=== PATIENT | male | born 1955 | race Caucasian/White ===

== ENCOUNTER 2020-09-04 17:52 | Emergency (ER) | payer MEDICARE, SELFPAY ==
--- NOTE | ~2020-09-04 | XR_ITS ---
EXAMINATION: XR CHEST CLINICAL INFORMATION: Weakness. COMPARISON: CT of the chest dated 03/30/2020. TECHNIQUE: Frontal view of the chest was obtained. FINDINGS: Mild elevation of the left hemidiaphragm secondary to volume loss. Left hilar and left lower lung/retrocardiac opacification No pulmonary edema. No pneumothorax or pleural effusion. Cardiomediastinal silhouette obscured by lung opacification. No acute osseous abnormality. XR/XR chest 1V IMPRESSION: Left lung volume loss. Left hilar and left lower lung opacification which may reflect sequelae of pneumonia. Underlying neoplasm not excluded.
--- NOTE | ~2020-09-04 | FL_ITS ---
EXAMINATION: XR BARIUM SWALLOW CLINICAL INFORMATION: Dysphagia COMPARISON: None TECHNIQUE: Fluoroscopic guidance was provided for modified barium swallow performed by the speech and hearing department The patient was administered liquid barium and various food mixed with barium. FINDINGS: There is tracheal penetration is seen with liquid barium on 2 occasions. The second occurrence was at the completion of the exam and there is question of minimal aspiration as well. There is significant retention of liquid barium and food mixed with barium. FLUOROSCOPY TIME: 2.7 minutes DOSE AREA PRODUCT: 3 pavon per centimeter squared. 1 saved fluoroscopic image. FL/FL barium swallow modified IMPRESSION: Fluoroscopy guidance for modified barium swallow
[2020-09-04 17:58] VITALS: BP 123/80; PULSE 96; RESP 18; TEMP 36.9; O2SAT 96
--- NOTE | 2020-09-04 18:01 | ED.PSYCH ---
HPI - Psych General Chief Complaint: Failure to Thrive Stated Complaint: FAILURE TO THRIVE Time Seen by Provider: 09/04/20 17:58 Source: patient Mode of arrival: ambulatory Limitations: no limitations History of Present Illness HPI Narrative: 64 yo male [facility] a [facility] with past medical history of asthma, ESTER, schizoaffective disorder-bipolar type, Lung CA with mets to liver followed by Dr Abad. [facility] on section 12 which says patient is refusing all medications with cycling mods, not eating or getting out of his bed. Reviewed last oncology note on 08/21 which notes at that time patient was refusing all chemotherapy treatment, not eating, depressed. Recommended psychiatry get involved to make sure he was getting his medications. Also recommended barium swallow. Patient on arrival tells me he has a decreased appetite and sometimes feels like food gets stuck when eating. Unable to elaborate on this. Denies pain or painful swallowing. Related Data Home Medications Medication Instructions Recorded Confirmed ascorbic acid (vitamin C) 1 tab PO BID 07/17/20 09/04/20 divalproex 1 tab PO BID 07/17/20 09/04/20 ferrous sulfate 1 tab PO BID 07/17/20 09/04/20 folic acid 1 tab PO DAILY 07/17/20 09/04/20 furosemide 1 tab PO DAILY 07/17/20 09/04/20 gabapentin 100 mg PO BID 07/17/20 09/04/20 docusate sodium 1 cap PO BID 09/04/20 09/04/20 fluticasone furoate-vilanterol 1 inh INHALATION DAILY 09/04/20 09/04/20 [Breo Ellipta] megestrol 20 ml PO DAILY 09/04/20 09/04/20 olanzapine [Zyprexa] 1 tab PO BEDTIME 09/04/20 09/04/20 Allergies Allergy/AdvReac Type Severity Reaction Status Date / Time No Known Allergies Allergy Unverified 03/27/20 18:57 [No Known Allergies*] Review of Systems Review of Systems: Yes all other systems are reviewed and are negative Constitutional: Constitutional: Reports no additional constitutional complaints, Reports anorexia, Denies body ache(s), Denies chills, Denies fever(s), Denies headache(s) and Denies weakness Eyes: Eyes: Reports no additional eye complaints and Denies change in vision ENT: Reports system reviewed and no additional complaints, except as documented, Reports dysphagia, Denies dizziness, Denies headache(s), Denies nasal congestion, Denies nasal discharge and Denies neck pain Cardiovascular: Cardiovascular: Reports no additional cardiovascular complaints, Denies chest pain, Denies leg edema and Denies dyspnea Respiratory: Respiratory: Reports no additional respiratory complaints, Denies cough and Denies dyspnea Gastrointestinal: Gastrointestinal: Reports no additional gastrointestinal complaints, Denies abdominal pain, Reports dysphagia, Denies diarrhea, Denies nausea and Denies vomiting Genitourinary: Genitourinary: Denies urinary incontinence Musculoskeletal: Musculoskeletal: Reports no additional musculoskeletal complaints, Denies back pain, Denies arthralgias, Denies joint swelling, Denies neck pain, Denies numbness and Denies tingling Integumentary/Breasts: Skin/Breast: Reports system reviewed and no additional complaints, except as docu and Denies rash Neurologic: Reports system reviewed and no additional complaints, except as documented, Denies Abnormal speech present, Denies dizziness, Denies headache(s), Denies numbness, Denies tingling and Denies weakness PMF Past Medical History Attestation statement: The following information was validated with the patient. Source: old records reviewed and nursing notes reviewed Medical History Schizophrenia Squamous cell carcinoma of lung Social History Social History Household Members: Other Smoking Status: Current every day smoker Tobacco Type: Cigarette Smoked in Last 30 Days: No Use of substances other than those prescribed or required for medical reasons: No Advance Directives: Yes Advance Directives on File: Yes Advance Directives Date on File: 09/04/20 Physical Exam Vital Signs: Vital Signs: Last Vital Signs Temp 98.5 F 09/04/20 20:00 Pulse 88 09/04/20 20:00 Resp 14 09/04/20 20:00 BP 120/76 09/04/20 20:00 Pulse Ox 100 09/04/20 20:00 Body Mass Index 20.2 Const: Other: thin appearing Orientation/consciousness: patient oriented x3 Limitations: no limitations HENMT: Other: tacky mucous membranes Head: Yes normal to inspection Ears: hearing grossly normal bilaterally General nose exam: Normal external nose present Face and sinus: Yes normal facial exam Mouth: Normal oral and palatal mucosa present Throat: Yes posterior oropharynx normal Eyes: General: appearance normal, both eyes and all related structures Pupils: Equal, round and reactive pupils present Neck: Neck: Yes normal visual inspection Chest: Chest palpation & inspection: normal inspection of the chest Resp: Effort & Inspection: normal respiratory effort Auscultation: clear to auscultation bilaterally Cardio: Rate: regular rate Rhythm: regular rhythm Peripheral pulses: Peripheral pulses 2+ throughout GI: Inspection: Yes normal to inspection Palpation (GI): Soft to palpation and nontender Auscultation: normal bowel sounds Back/Spine/Pelvis: Thoracic/Lumbar Spine: thoracic and lumbar spine normal to inspection Skin: General skin exam: no rashes or lesions noted Neuro: General: patient oriented x3, no focal motor deficits and normal sensation to monofilament Cranial nerves: Yes Equal, round and reactive pupils present Cognition (Neuro): normal cognition Speech: No Abnormal speech present Gait exam (Neuro): Normal gait present Motor exam (neuro): 5/5 motor strength present throughout Extrem: General: Yes normal to inspection Course Course Course Narrative: 64 yo male here on section 12 with concern for not taking his medications, refusing all food and staying in bed for last 4 days. Reviewed last oncology notes from 08/21 and noted that patient at that time was refusing chemotherapy, refusing po intake and medications. Recommended discussion with psych and obtaining barium swallow test. Patient is only able to provide a very limited history. He tells me he has no appetite and sometimes food gets stuck. He tells me he does not want to take his medications or have chemotherapy but when I asked the patient is he was wishing to he denies this. ?lack of insight and judgment. I'm not sure he understands what this means for him. Sister is listed as HCP. Called twice with no answer, left message. Will check labs, CXR, EKG, UA, COVID screen. 190-labs are unremarkable. Chest x-ray shows Left lung volume loss. Left hilar and left lower lung opacification which may reflect sequelae of pneumonia. Underlying neoplasm not excluded. When compared to oncology note this is his underlying malignancy. COVID negative. ?plan of care with patient who is resistant (not taking medications, refusing PO per staff) however labs do not reflect a patient who has taken nothing by mouth. Very difficult and ?underlying psychiatric diagnosis with non compliance of medications contributing to behavior vs mechanical abnormality. Another attempt to reach HCP but unsuccessful. Will discuss with oncology. 1929-Discussed with Dr Gonzalez from oncology. Recommended admit to observation, obtaining barium swallow study, involving psychiatry for medication managament but also to evaluate competency. Likely will need advanced care planning when able to reach HCP. Discussed with hospitalist (Dr Jennings) who does not feel that patient meets admission criteria at this time. [id number]-discussed with Asya from Care Team, Mandi from case management. [facility] has beeen involved and doing daily visits at penitentiary and have not felt at this point patient requires inpatient psych care. Patient was sent on a section 12 from [facility]. Lengthy discussion with family on the phone. They expressed concern that they know very little about the patient's prognosis as he likes to keep things to himself. The sister who is his healthcare proxy shares this concern. She very much wants to respect her brother's autonomy but also wants what is best for him and she is very concerned of his recent decline. Will place consult as well for oncology Dr. Abad that she may spend time talking to the family as well as the patient about his prognosis and future plan of care. Case management also requested physical therapy consult. MDM - Psych Medical Records Attestation: I reviewed the patient's medical records. Lab Data Attestation: I reviewed the patient's lab results. Result diagrams: 09/04/20 18:22 09/04/20 18:23 Labs: Lab Results 09/04/20 09/04/20 09/04/20 Range/Units 18:22 18:23 18:23 WBC 10.5 (4.8-10.8) X10*3/uL RBC 4.52 L (4.60-5.80) X10*6/uL Hgb 13.1 L (14.0-18.0) g/dl Hct 39.9 L (42-52) % MCV 88.3 (80-98) fL MCH 29.0 (27.0-33.0) pg MCHC 32.8 (31.0-36.0) g/dl RDW 15.3 (11.0-16.0) % Plt Count 224 D (160-400) X10*3/uL MPV 9.5 (9.4-12.4) fL Immature Gran % (Auto) 1.1 H (0.0-0.4) % Neut % (Auto) 87.9 H (45-73) % Lymph % (Auto) 4.3 L (20-40) % Collingsworth % (Auto) 6.6 (2-11) % Eos % (Auto) 0.0 (0-4) % Baso % (Auto) 0.1 (0-2) % Lymph # (Auto) 0.5 L (1.2-4.9) X10*3/uL Collingsworth # (Auto) 0.7 (0.1-1.2) X10*3/uL Eos # (Auto) 0.0 (0.0-0.4) X10*3/uL Baso # (Auto) 0.0 (0.0-0.2) X10*3/uL Abs Immat Gran (auto) 0.12 H (0.00-0.03) X10*3/uL Absolute Neuts (auto) 9.2 H (2.0-8.3) X10*3/uL Absolute Nucleated RBC 0.000 (0.0-0.012) X10*3/uL Nucleated RBC % (auto) 0.0 (0.0-0.2) /100WBC Smear Tech's Comments VERIFIED PT (10.8-13.0) SEC INR (0.9-1.1) Sodium 143 (135-145) mmol/L Potassium 3.8 (3.3-5.1) mmol/L Chloride 99 (96-108) mmol/L Carbon Dioxide 34 H (22-29) mmol/L Anion Gap 14 (12-20) BUN 23 H (9-16) mg/dL Creatinine 0.73 (0.5-1.4) mg/dL Estim Creat Clear Calc 84.5 Estimated GFR > 60 Random Glucose 92 (60-115) mg/dL Calcium 9.3 (8.4-10.2) mg/dL Magnesium 1.9 (1.6-2.6) mg/dL Total Bilirubin 0.7 (0.0-1.0) mg/dL Direct Bilirubin 0.4 (0.0-0.5) mg/dL AST 52 H (5-37) U/L ALT 22 (0-40) U/L Alkaline Phosphatase 213 H (39-117) U/L Troponin I High Sens (<3.5-35.0) ng/L Total Protein 5.7 L (6.5-8.0) g/dL Albumin 3.0 L (3.5-5.0) g/dL Urine Color Urine Appearance Urine pH (5.0-8.0) Ur Specific Bradford (1.005-1.025) Urine Protein (NEG-TRACE) MG/DL Urine Glucose (UA) (NEG) MG/DL Urine Ketones (NEG) MG/DL Urine Blood (NEG) Urine Nitrite (NEG) Ur Leukocyte Esterase (NEG) COVID-19 (MARISOL) Negative (Negative) COVID-19 Clin Com See Note 09/04/20 09/04/20 09/04/20 Range/Units 18:23 18:24 18:31 WBC (4.8-10.8) X10*3/uL RBC (4.60-5.80) X10*6/uL Hgb (14.0-18.0) g/dl Hct (42-52) % MCV (80-98) fL MCH (27.0-33.0) pg MCHC (31.0-36.0) g/dl RDW (11.0-16.0) % Plt Count (160-400) X10*3/uL MPV (9.4-12.4) fL Immature Gran % (Auto) (0.0-0.4) % Neut % (Auto) (45-73) % Lymph % (Auto) (20-40) % Collingsworth % (Auto) (2-11) % Eos % (Auto) (0-4) % Baso % (Auto) (0-2) % Lymph # (Auto) (1.2-4.9) X10*3/uL Collingsworth # (Auto) (0.1-1.2) X10*3/uL Eos # (Auto) (0.0-0.4) X10*3/uL Baso # (Auto) (0.0-0.2) X10*3/uL Abs Immat Gran (auto) (0.00-0.03) X10*3/uL Absolute Neuts (auto) (2.0-8.3) X10*3/uL Absolute Nucleated RBC (0.0-0.012) X10*3/uL Nucleated RBC % (auto) (0.0-0.2) /100WBC Smear Tech's Comments PT 12.5 (10.8-13.0) SEC INR 1.1 (0.9-1.1) Sodium (135-145) mmol/L Potassium (3.3-5.1) mmol/L Chloride (96-108) mmol/L Carbon Dioxide (22-29) mmol/L Anion Gap (12-20) BUN (9-16) mg/dL Creatinine (0.5-1.4) mg/dL Estim Creat Clear Calc Estimated GFR Random Glucose (60-115) mg/dL Calcium (8.4-10.2) mg/dL Magnesium (1.6-2.6) mg/dL Total Bilirubin (0.0-1.0) mg/dL Direct Bilirubin (0.0-0.5) mg/dL AST (5-37) U/L ALT (0-40) U/L Alkaline Phosphatase (39-117) U/L Troponin I High Sens 5.6 (<3.5-35.0) ng/L Total Protein (6.5-8.0) g/dL Albumin (3.5-5.0) g/dL Urine Color YELLOW Urine Appearance CLEAR Urine pH 5.5 (5.0-8.0) Ur Specific Bradford 1.020 (1.005-1.025) Urine Protein NEG (NEG-TRACE) MG/DL Urine Glucose (UA) NEG (NEG) MG/DL Urine Ketones NEG (NEG) MG/DL Urine Blood NEG (NEG) Urine Nitrite NEG (NEG) Ur Leukocyte Esterase NEG (NEG) COVID-19 (MARISOL) (Negative) COVID-19 Clin Com Imaging Data Chest x-ray: Attestation: I personally reviewed and interpreted this imaging study as follows: Radiologist's impression: EXAMINATION: XR CHEST CLINICAL INFORMATION: Weakness. COMPARISON: CT of the chest dated 03/30/2020. TECHNIQUE: Frontal view of the chest was obtained. FINDINGS: Mild elevation of the left hemidiaphragm secondary to volume loss. Left hilar and left lower lung/retrocardiac opacification No pulmonary edema. No pneumothorax or pleural effusion. Cardiomediastinal silhouette obscured by lung opacification. No acute osseous abnormality. XR/XR chest 1V IMPRESSION: Left lung volume loss. Left hilar and left lower lung opacification which may reflect sequelae of pneumonia. Underlying neoplasm not excluded. ECG Data Attestation: I personally reviewed and interpreted this ECG as follows: Interpretation: SR with PAC's with rte 97, normal pr, normal qrs, normal qtc Discharge Plan Discharge Prescriptions: No Action ascorbic acid (vitamin C) 500 mg tablet 1 tab PO BID RF: 0 ferrous sulfate 325 mg (65 mg iron) tablet 1 tab PO BID RF: 0 divalproex 125 mg tablet,delayed release (DR/EC) 1 tab PO BID RF: 0 folic acid 1 mg tablet 1 tab PO DAILY RF: 0 furosemide 20 mg tablet 1 tab PO DAILY RF: 0 gabapentin 100 mg capsule 100 mg PO BID RF: 0 megestrol 400 mg/10 mL (40 mg/mL) suspension 20 ml PO DAILY RF: 0 docusate sodium 100 mg capsule 1 cap PO BID RF: 0 olanzapine [Zyprexa] 20 mg tablet 1 tab PO BEDTIME RF: 0 Breo Ellipta 200-25 mcg/dose blister with device 1 inh inhalation DAILY RF: 0
[2020-09-04 18:02] VITALS: BP 123/80; PULSE 96; RESP 16; TEMP 36.9; BMI 20.2
--- NOTE | 2020-09-04 18:10 | ECG_ITS ---
Test Reason : WEAKNESS Blood Pressure : / mmHG Vent. Rate : 097 BPM Atrial Rate : 097 BPM P-R Int : 136 ms QRS Dur : 088 ms QT Int : 364 ms P-R-T Axes : 084 099 039 degrees QTc Int : 462 ms Sinus rhythm with Premature atrial complexes Rightward axis Borderline ECG When compared with ECG of 30-MAR-2020 15:45, Premature atrial complexes are now Present Nonspecific T wave abnormality now evident in Anterior leads Referred By: Keri lFetcher Electronically Signed By:PALLAVI ALMONTE MD
[2020-09-04 18:29] VITALS: O2SAT 99
[2020-09-04 18:30] LABS: Basophils Percent Auto 0.1 % (0-2); Hematocrit 39.9 % (42-52); Hemoglobin 13.1 g/dl (14.0-18.0); Imm Gran Abs Auto 0.12 X10*3/uL (0.00-0.03); Imm Gran Pct Auto 1.1 % (0.0-0.4); Lymphocytes Absolute Auto 0.5 X10*3/uL (1.2-4.9); Lymphocytes Percent Auto 4.3 % (20-40); MANUAL DIFF FLAG SCAN; Mean Corpuscular HGB Conc 32.8 g/dl (31.0-36.0); Mean Corpuscular Volume 88.3 fL (80-98); Mean Platelet Volume 9.5 fL (9.4-12.4); Monocytes Absolute Auto 0.7 X10*3/uL (0.1-1.2); Monocytes Percent Auto 6.6 % (2-11); Neutrophils Absolute Auto 9.2 X10*3/uL (2.0-8.3); Neutrophils Percent Auto 87.9 % (45-73); Platelet Count 224 X10*3/uL (160-400); Red Blood Count 4.52 X10*6/uL (4.60-5.80); Red Cell Distribution Width 15.3 % (11.0-16.0); SCAN SMEAR FLAG 1; White Blood Count 10.5 X10*3/uL (4.8-10.8)
[2020-09-04 18:37] LABS: INTERNATIONAL NORM RATIO 1.1 (0.9-1.1); Prothrombin Time 12.5 SEC (10.8-13.0)
[2020-09-04 18:39] LABS: Glucose Urine UA NEG (NEG); Leukocyte Esterase Urine NEG (NEG); Nitrite Urine NEG (NEG); PH 5.5 (5.0-8.0); Urine Blood NEG (NEG); Urine Ketones NEG (NEG); Urine Protein NEG (NEG-TRACE)
[2020-09-04 18:40] LABS: Appearance Urine CLEAR; Color Urine YELLOW
[2020-09-04 18:45] LABS: COVID-19 Test Negative (Negative)
[2020-09-04 18:51] LABS: SLIDE REVIEW VERIFIED
[2020-09-04 18:52] LABS: Alanine Aminotransferase 22 U/L (0-40); Alkaline Phosphatase 213 U/L (39-117); Anion Gap 14 (12-20); Aspartate Amino Transferase 52 U/L (5-37); Bilirubin Direct 0.4 mg/dL (0.0-0.5); Bilirubin Total 0.7 mg/dL (0.0-1.0); Blood Urea Nitrogen 23 mg/dL (9-16); Calcium 9.3 mg/dL (8.4-10.2); Carbon Dioxide 34 mmol/L (22-29); Chloride 99 mmol/L (96-108); Creatinine Clr Calc Pharmacy 84.5; Estimated Glomerular Filt Rate > 60; Glucose Random 92 mg/dL (60-115); Magnesium 1.9 mg/dL (1.6-2.6); Potassium 3.8 mmol/L (3.3-5.1); Sodium 143 mmol/L (135-145); Total Protein 5.7 g/dL (6.5-8.0)
[2020-09-04 18:56] LABS: Troponin-I High Sensitivity 5.6 ng/L (<3.5-35.0)
[2020-09-04 20:00] VITALS: BP 120/76; PULSE 88; RESP 14; TEMP 36.9; O2SAT 100
--- NOTE | 2020-09-04 21:51 | MHC.CARE ---
CARE Team is asked to speak with patient, who is sent here on a section 12 by his [facility] care home staff. CARE Team reaches out to [facility] crisis, and they report that they have evaluated pt multiple times this week at the care home, with recommendation for outpatient treatment. [facility] does not feel that pt is suicidal or decompensated. Pt has reportedly been refusing cancer treatment and minimally eating and drinking. [facility] is concerned about pt's judgment and ability to make reasoned decisions about his care. CARE Team meets with pt, who gives answers in one or two words only. He adamantly denies suicidal ideation. His affect is flat, and eyes are closed through most of the intervention. When asked why he is refusing treatment and refusing to eat and drink at times, he states I just don't want to, and i'll be fine. He denies feeling depressed and states that he does not want any additional mental health treatment at this time. No symptoms of psychosis are observed. CARE Team and DRAGAN Raymond from case management speak with patient's sister, Elsa. Elsa identifies that when her brother does not take psychiatric medications he presents w/ psychotic sx, yelling, talking to himself and paranoia. She identifies that pt typically would be off medication for 2-3 weeks before these symptoms would be observed. Elsa reports that she is unclear about how adavanced pt's cancer is, but she and their mother plan on supporting pt if he no longer wants to participate in chemotherapy. Elsa identifies that pt seems significantly more weak than usual over the past two weeks, eating and drinking less and using a walker. She wonders if he may need to more medical care then his care home is providing at this time. Elsa states that she is willing to speak to pt on the phone and encourage him to take his medications if needed. CARE Team speaks with Lyndsay, staff from pt's care home at [facility]. fractionation plant supervisor, Daniel Hurt can be reached at [phone] and will be available tomorrow during the day. Lyndsay reports that pt takes medications twice daily and has refused 4 times over the past seven days. She reports that pt has been intermittently medication noncompliant over the past month or so, and within the past month went an entire week without medications. Lyndsay identifies that care home services are centered around mental health and there is very limited nursing care available there. Benji identifies that pt has not presented with psychotic or manic sx recently, and appears depressed more than usual. CARE Team, case management (DRAGAN Raymond) and AMBROSE Saavedra discuss plans for this patient. Plan for tomorrow includes additional medical work up, psychiatric consultation to determine capacity, and additional intervention from case management. Per N and CARE Team, pt does not currently meet criteria for inpt level of care. CARE Team is available as needed for support, however, additional intervention not planned from CARE Team at this time.
--- NOTE | 2020-09-04 22:53 | MHC.CM.ED ---
CM referred by Keri TaverasConcerned about pt needing more medical care that care home can offer.Pt not meeting criteria for admission/obs. Asya from CARE team met with pt. Asya [facility] Care Team spoke to CM about concerns and met with pt. Pt was section 12 to ED from his mental health care home for intermittently taking his meds and not eating. [facility] evaluated pt at care home several times this week, per [facility], pt does not meet level of care for inpt. psych. Per N, pt drank 4 ensures today. There is a question if pt has been refusing further CA treatment from care home. Pt has recurrent squamous cell lung carcinoma with mets to liver. Has had chemo and radiation in the past. Per Dr. Vegas's record of 08/23/20, pt refused last chemo treatment. Not feeling well. C/O difficulty swallowing. Seeming much weaker. Spoke with sister/HCO Elsa Coltonkosta ([phone]) with Asya from CARE team. Per sister, pt appears weaker to her, is using a walker and seem to be going downhill. Is unsure about updates regarding lung cancer, as her brother does not share this with her. Sister stated both she and her mother will support her brother's decision if he chooses not to continue to cancer treatments. Sister feels pt needs more medical care. Dr. Vegas's note, pt needs barium swallow to assess for swallowing issues. Plan for am: Barium swallow, PT consult, Consult to Rubina Quiles ? capacity, Consult Oncology -update on lung cancer prognosis and assistance with pt to make decision about treatment. Concerns: Capacity, swallowing concerns, [facility] care home is for mental health not medical care, need for STR, needing more medical care, refusing some medications at care home (4doses last week out of 14) Contacts: Elsa BAUER/sister [phone] [facility] care [facility]: [phone] preparation department supervisor Daniel Hurt No referrals placed at this time pending further evaluation. CM to follow for d/c needs.
[2020-09-05] VITALS (8 sets, daily range): BP systolic 100–126; BP diastolic 58–70; PULSE 65–76; RESP 16–18; O2SAT 92–98
[2020-09-05] MEDS: Gabapentin 100 MG CAPSULE PO ×3 (00:19→20:44)
[2020-09-05] MEDS: OLANZapine 10 MG TABLET 20 MG PO ×2 (00:19→20:45)
[2020-09-05] MEDS: Ascorbic Acid 500 MG TABLET PO ×3 (00:19→20:44)
[2020-09-05] MEDS: Docusate Sodium 100 MG CAPSULE PO ×3 (00:19→20:44)
--- NOTE | 2020-09-05 05:09 | PC.NURSE ---
PT TOOK PO MEDS W/O DIFFICULTY, REQUESTING FLUIDS. WOULD NOT EAT. WAS CALM & COOPERATIVE W/THIS RN W/NO COMPLAINTS. PT IS PENDING, ONCOLOGY CONSULT, PT/CM, AND BARIUM SWALLOW TODAY
--- NOTE | 2020-09-05 07:12 | PC.NURSE ---
Nurse to Nurse report received from Al RN. Pt alert, responsive. Offers no complaints at this time. Respirations even/unlabored bilaterally. Pt awaiting oncology consult, PT, Case management, and a Barrium swallow. Will continue to monitor.
[2020-09-05] MEDS: Furosemide 20 MG TABLET PO (10:01)
[2020-09-05] MEDS: Folic Acid 1 MG TABLET PO (10:02)
[2020-09-05] MEDS: Ferrous Sulfate 324 MG TABLET.DR PO (10:02)
[2020-09-05] MEDS: Megestrol Acetate 400 MG/10 ML ORAL.SUSP 800 MG PO (10:02)
--- NOTE | 2020-09-05 11:09 | MHC.CARE ---
[facility] program director group work Lizzie Henriquez called to inquire about pt. She was concerned about pts medical issues and his acute depressive state. CARE explained pt has several orders placed for further workup pending. CARE suggested that she speak with pts nurse when needing medical questions answered and [facility] program nurse might be calling and can be reached at [phone]. ED number was provided.
--- NOTE | 2020-09-05 14:18 | PC.NURSE ---
PT INITIALLY REFUSING SWALLOW TEST WITH RAD TECHS AT BEDSIDE, PT NOTED TO BE SOILED, CLOTHES CHANGED AND PT CLEANED, PT THEN AGREEABLE TO SWALLOW TEST, OFF UNIT FOR STUDY.
--- NOTE | 2020-09-05 14:29 | MHC.CM.PN ---
nurse from pt's [facility] called to leave his contact information: maritza at ph: [phone]. patient also has a psychiatric provider outside of the hospital, pavan avila md. ph: [phone]. he is requesting to speak c psych provider at [facility] who is going to do the psych eval. unfortunately, lilia nieto is not working today; we are uncertain who the covering psych provider will be doing the eval at this time. cm to cont. to follow.
--- NOTE | 2020-09-05 15:50 | PM.PSYCN ---
History of Present Illness Date of Service: 09/05/2020 Chief Complaint: FAILURE TO THRIVE Reason for Consult: Capacity Requesting physician: Keri Fletcher Sources of Information: patient interviewed, chart reviewed and crisis/core team assessment reviewed Additional Sources of Information: This senior mortgage underwriter spoke with pt's OP psychiatric provider Ramiro Brown and his HCP. HPI Narrative: 64 yo male from a [facility] with past medical history of asthma, ESTER, schizoaffective disorder-bipolar type, Lung CA with mets to liver followed by Dr Abad. Here from [facility] on section 12 which says patient is refusing all medications with cycling mods, not eating or getting out of his bed. Last oncology note on 08/21 which notes at that time patient was refusing all chemotherapy treatment, not eating, depressed. This senior mortgage underwriter was asked to see patient to complete capacity assessment. Mr. Toney was in bed. He was somewhat irritable but agreed to answer some questions. He was oriented to place (able to tell this senior mortgage underwriter that he is [place] [facility] year, month. However, when asked about what had brought him to the hospital, pt kept repeating I don't know. When discussing chemotherapy for treatment of SCLC, pt reports that he is currently getting chemotherapy and shows this senior mortgage underwriter where he has an IV. This senior mortgage underwriter informed pt that at this time he is not receiving chemotherapy and that he has declined to received it recently. When asked about reasons for declining treatment with chemotherapy but unable to provide an answer. When asked about his understanding of what happens if he declines or receive treatment, pt again not able to provide an answer. Pt has been accepting chemotherapy treatment but recently stopped for unclear reasons. This senior mortgage underwriter spoke with his sister, who notes pt has been increasingly more withdrawn. Per sister, she is not aware of reason as to why he now declining treatment, despite trying to have this conversation with him several times in past weeks. She agrees that it is inconsistent with his previous agreement to receive treatment. Given that patient does not appear to fully show understanding of his current medical condition, show appreciation of risks versus benefit of receiving or refusing treatment, he DOES NOT appear to have capacity at this moment to make medical decisions. This senior mortgage underwriter spoke with his OP psychiatric provider, Ramiro Brown who reports pt was on higher dose of depakote- lowered due to metastasis to his liver. We discussed trial of lithium to help with depressive symptoms. Medical Evaluation Reviewed: Yes FOR[facility]LY [facility] Medical History Schizophrenia Squamous cell carcinoma of lung Diagnostics Vital Signs (24Hr): Vital Signs - 24 hr 09/04/20 17:58 09/04/20 18:02 09/04/20 18:29 Temperature 98.5 F 98.5 F Pulse Rate 96 96 Respiratory Rate 18 16 Blood Pressure 123/80 123/80 Pulse Oximetry 96 99 09/04/20 20:00 09/05/20 04:00 09/05/20 06:00 Temperature 98.5 F Pulse Rate 88 70 Respiratory Rate 14 17 16 Blood Pressure 120/76 126/70 Pulse Oximetry 100 98 09/05/20 08:00 09/05/20 10:00 09/05/20 12:00 Temperature Pulse Rate 65 66 Respiratory Rate 16 18 18 Blood Pressure Pulse Oximetry 97 Body Mass Index 20.2 Labs Results: 09/04/20 18:22 09/04/20 18:23 Labs: Laboratory Results - last 48 hr 09/04/20 09/04/20 09/04/20 18:22 18:23 18:23 WBC 10.5 RBC 4.52 L Hgb 13.1 L Hct 39.9 L MCV 88.3 MCH 29.0 MCHC 32.8 RDW 15.3 Plt Count 224 D MPV 9.5 Immature Gran % (Auto) 1.1 H Neut % (Auto) 87.9 H Lymph % (Auto) 4.3 L Guthrie % (Auto) 6.6 Eos % (Auto) 0.0 Baso % (Auto) 0.1 Lymph # (Auto) 0.5 L Guthrie # (Auto) 0.7 Eos # (Auto) 0.0 Baso # (Auto) 0.0 Abs Immat Gran (auto) 0.12 H Absolute Neuts (auto) 9.2 H Absolute Nucleated RBC 0.000 Nucleated RBC % (auto) 0.0 Smear Tech's Comments VERIFIED PT INR Sodium 143 Potassium 3.8 Chloride 99 Carbon Dioxide 34 H Anion Gap 14 BUN 23 H Creatinine 0.73 Estim Creat Clear Calc 84.5 Estimated GFR > 60 Random Glucose 92 Calcium 9.3 Magnesium 1.9 Total Bilirubin 0.7 Direct Bilirubin 0.4 AST 52 H ALT 22 Alkaline Phosphatase 213 H Troponin I High Sens Total Protein 5.7 L Albumin 3.0 L Urine Color Urine Appearance Urine pH Ur Specific Kuna Urine Protein Urine Glucose (UA) Urine Ketones Urine Blood Urine Nitrite Ur Leukocyte Esterase COVID-19 (MARISOL) Negative COVID-19 Clin Com See Note 09/04/20 09/04/20 09/04/20 18:23 18:24 18:31 WBC RBC Hgb Hct MCV MCH MCHC RDW Plt Count MPV Immature Gran % (Auto) Neut % (Auto) Lymph % (Auto) Guthrie % (Auto) Eos % (Auto) Baso % (Auto) Lymph # (Auto) Guthrie # (Auto) Eos # (Auto) Baso # (Auto) Abs Immat Gran (auto) Absolute Neuts (auto) Absolute Nucleated RBC Nucleated RBC % (auto) Smear Tech's Comments PT 12.5 INR 1.1 Sodium Potassium Chloride Carbon Dioxide Anion Gap BUN Creatinine Estim Creat Clear Calc Estimated GFR Random Glucose Calcium Magnesium Total Bilirubin Direct Bilirubin AST ALT Alkaline Phosphatase Troponin I High Sens 5.6 Total Protein Albumin Urine Color YELLOW Urine Appearance CLEAR Urine pH 5.5 Ur Specific Kuna 1.020 Urine Protein NEG Urine Glucose (UA) NEG Urine Ketones NEG Urine Blood NEG Urine Nitrite NEG Ur Leukocyte Esterase NEG COVID-19 (MARISOL) COVID-19 Clin Com Imaging Radiology Impressions: ITS Impressions Chest X-Ray 09/04/20 18:10 IMPRESSION: Left lung volume loss. Left hilar and left lower lung opacification which may reflect sequelae of pneumonia. Underlying neoplasm not excluded. Modified Barium Swallow 09/05/20 08:00 IMPRESSION: Fluoroscopy guidance for modified barium swallow Mental Status Exam Mental Status Exam Narrative: Appearance: thin male, in bed, withdrawn but in NAD Behavior: guarded, irritable Psychomotor: retardation noted Speech: mumbles at times, mostly clear, slowed response rate, soft, minimally spontaneous TP: mostly linear TC: no overt psychotic symptoms, some suspiciousness, wanting to be left alone Mood: tired Affect: guarded/irritable VH/AH:unclear if responding to internal stimuli but pt denies Delusions: no overt delusional content disclosed, but some collateral information points at some suspiciousness at [facility]pc Insight/judgment: impaired x 2. Memory/cog: alert, oriented to place, month, year, but not situation, ? of underlying cognitive impairments. Medications Medications Current Medications Generic Name Dose Route Start Last Admin Trade Name Freq PRN Reason Stop Dose Admin Ascorbic Acid 500 mg 09/04/20 23:45 09/05/20 10:01 Ascorbic Acid 500 Mg Tablet PO 500 mg BID MICHELLE Administration Divalproex Sodium 125 mg 09/04/20 23:45 09/05/20 10:01 Divalproex Sodium 125 Mg Tablet. PO 125 mg BID MICHELLE Administration Docusate Sodium 100 mg 09/04/20 23:45 09/05/20 10:01 Docusate Sodium 100 Mg Capsule PO 100 mg BID MICHELLE Administration Ferrous Sulfate 324 mg 09/05/20 08:30 09/05/20 10:02 Ferrous Sulfate 324 Mg Tablet. PO 324 mg BIDPC MICHELLE Administration Fluticasone/Vilanterol 1 puff 09/05/20 09:00 09/05/20 10:02 Fluticasone/Vilanterol 200/25 Blst.W.Dev INHALE Not Given DAILY MICHELLE Folic Acid 1 mg 09/05/20 09:00 09/05/20 10:02 Folic Acid 1 Mg Tablet PO 1 mg DAILY MICHELLE Administration Furosemide 20 mg 09/05/20 09:00 09/05/20 10:01 Furosemide 20 Mg Tablet PO 20 mg DAILY MICHELLE Administration Protocol Gabapentin 100 mg 09/04/20 23:45 09/05/20 10:01 Gabapentin 100 Mg Capsule PO 100 mg BID MICHELEL Administration Megestrol Acetate 800 mg 09/05/20 09:00 09/05/20 10:02 Megestrol Acetate 400 Mg/10 Ml Oral.Susp PO 800 mg DAILY MICHELLE Administration Olanzapine 20 mg 09/04/20 23:45 09/05/20 00:19 Olanzapine 10 Mg Tablet PO 20 mg BEDTIME MICHELLE Administration Pharmacy Consult 1 each 09/04/20 18:08 Consult Rx Perform Med Rec MISCELLANE ONCE PRN Consult order Allergies Allergies Allergy/AdvReac Type Severity Reaction Status Date / Time No Known Allergies Allergy Unverified 03/27/20 18:57 [No Known Allergies*] Assessment & Plan Assessment & Plan (1) Schizoaffective disorder, bipolar type: Status: Acute Code(s): F25.0 - Schizoaffective disorder, bipolar type Recommendations: 1. PT DOES NOT APPEAR TO HAVE CAPACITY TO MAKE MEDICAL DECISIONS AT THIS POINT. He lacks ability to show understanding of current medical condition, need for treatment, appreciation of risks, versus benefits. He in fact thought he was receiving chemotherapy for simply fact that he has an IV. He is unable to explain reasons for being in the hospital or consequences of declining treatment for SCLC. His recent decision to decline chemotherapy treatment appears inconsistent to his previous decision to receive treatment in absence of logical explanation of how he recently decided otherwise. HCP, Elsa ([phone]) was informed of capacity assessment and in agreement. Please refer to her fur further discussion of Mr. Toney's medical treatment. 2. D/C depakote- given metastasis to liver and dose that may not be increase to therapeutic levels. Check ammonia levels- to rule make sure this is not elevated even at low dose of depakote. 3. Discussed with OP psych Provider, Ramiro Brown, starting low dose lithium for symptoms of depression. Start Brusly 150mg po qhs- monitor renal function, TSH, lithium level x 5 days after initiation. 4. Olanzapine is significantly metabolized liver- for now continue this medication. Potential options with less liver involvement could be paliperidone or risperidone. Greater than 50% of the session was spent on counseling and/or coordination of care
--- NOTE | 2020-09-05 16:38 | MHC.CM.ED ---
Barium Swallow ? minimal aspiration. Significan retention of Barium and food mixed with Barium. Notified Preeti ROACH. Will consult Dr. Veras. May admit. CM to follow for d/c needs
--- NOTE | 2020-09-05 16:40 | MHC.CM.ED ---
Luna Orozco PA psych met with pt. Pt does NOT have capacity to make medical decisions. PA attempting to call sister, Elsa. CM gave PA contact information for Dr. Ramiro Medley, , who cares for pt in community. Luna did speak with him about medication options for pt. Will speak with sister Elsa about capacity and plan of care. CM to follow for d/c needs.
--- NOTE | 2020-09-05 19:03 | MHC.CM.PN ---
Addendum entered by Rosalinda Zavaleta 09/05/20 19:15: Luna ROACH spoke with siste/HCP Elsa. She is aware that brother does not have capacity to make medical decisions. Attempted to speak with her about ongoing plan of care; unable to leave a message, mailbox is full. Original Note: Preeti ROACH spoke with Dr. Veras with Barium Swallow results. No new orders. Suggested pt be on palliative care/ONCOLOGY RADIATION PHYSICIAN. Waiting for oncology consult. Will need PT consult tomorrow. Pt remains cooperative, taking medication and drinking po. Pt to remain in ED pending consults.
[2020-09-05] MEDS: Lithium Carbonate 300 MG TABLET 150 MG PO (20:44)
--- NOTE | 2020-09-06 02:51 | PC.NURSE ---
PT SLEEPING. RESP EVEN AND REG
[2020-09-06 07:33] VITALS: BP 100/60; PULSE 78; RESP 14; O2SAT 98
--- NOTE | 2020-09-06 07:34 | PC.NURSE ---
PT REFUSED BKFST. DID DRINK OJ
[2020-09-06] MEDS: Ascorbic Acid 500 MG TABLET PO ×2 (09:26→21:12)
[2020-09-06] MEDS: Ferrous Sulfate 324 MG TABLET.DR PO (09:26)
[2020-09-06] MEDS: Furosemide 20 MG TABLET PO (09:26)
[2020-09-06] MEDS: Gabapentin 100 MG CAPSULE PO ×2 (09:26→21:11)
[2020-09-06] MEDS: Folic Acid 1 MG TABLET PO (09:26)
[2020-09-06] MEDS: Docusate Sodium 100 MG CAPSULE PO ×2 (09:26→21:12)
--- NOTE | 2020-09-06 09:47 | PC.NURSE ---
Bedside swallow eval performed before giving the patient his morning medications. He passed his swallow eval and was able to take his pills whole with orange juice.
--- NOTE | 2020-09-06 12:10 | MHC.CM.ED ---
Patient remains in ER. Per AMBROSE Saavedra, HCP/sister, Elsa is looking to speak to patient's oncologist about prognosis. Dr Abad notified via [place]. Dr Abad spoke with Elsa. She is requesting to come to the ER to see if patient will eat for her. Elsa contacted via telephone at [phone]. Explained Elsa will be able to have a short visit in the ER. However, she will need to pass the visitor screening questions first. Elsa verbalized understanding. Per AMBROSE Saavedra patient will be admitted for aspiration and dysphagia. Continue to monitor for d/c needs.
[2020-09-06 12:27] LABS: Basophils Percent Auto 0.1 % (0-2); Eosinophils Percent Auto 0.1 % (0-4); Hematocrit 39.1 % (42-52); Hemoglobin 12.3 g/dl (14.0-18.0); Imm Gran Abs Auto 0.09 X10*3/uL (0.00-0.03); Imm Gran Pct Auto 0.8 % (0.0-0.4); Lymphocytes Absolute Auto 0.6 X10*3/uL (1.2-4.9); Lymphocytes Percent Auto 5.2 % (20-40); MANUAL DIFF FLAG SCAN; Mean Corpuscular HGB Conc 31.5 g/dl (31.0-36.0); Mean Corpuscular Hemoglobin 28.1 pg (27.0-33.0); Mean Corpuscular Volume 89.5 fL (80-98); Mean Platelet Volume 9.1 fL (9.4-12.4); Monocytes Absolute Auto 0.8 X10*3/uL (0.1-1.2); Neutrophils Absolute Auto 9.8 X10*3/uL (2.0-8.3); Neutrophils Percent Auto 86.8 % (45-73); Platelet Count 208 X10*3/uL (160-400); Red Blood Count 4.37 X10*6/uL (4.60-5.80); Red Cell Distribution Width 15.7 % (11.0-16.0); SCAN SMEAR FLAG 1; White Blood Count 11.3 X10*3/uL (4.8-10.8)
[2020-09-06 13:14] LABS: Alanine Aminotransferase 18 U/L (0-40); Albumin Level 2.7 g/dL (3.5-5.0); Alkaline Phosphatase 195 U/L (39-117); Anion Gap 10 (12-20); Aspartate Amino Transferase 47 U/L (5-37); Bilirubin Direct 0.3 mg/dL (0.0-0.5); Bilirubin Total 0.5 mg/dL (0.0-1.0); Blood Urea Nitrogen 28 mg/dL (9-16); Calcium 9.1 mg/dL (8.4-10.2); Carbon Dioxide 36 mmol/L (22-29); Chloride 98 mmol/L (96-108); Creatinine Clr Calc Pharmacy 69.3; Estimated Glomerular Filt Rate > 60; Glucose Random 131 mg/dL (60-115); Magnesium 2.1 mg/dL (1.6-2.6); Potassium 4.4 mmol/L (3.3-5.1); Sodium 140 mmol/L (135-145); Total Protein 5.2 g/dL (6.5-8.0)
[2020-09-06 13:34] LABS: SLIDE REVIEW VERIFIED
[2020-09-06] MEDS: 0.9 % Sodium Chloride 500 ML 999 ML IV (13:42)
[2020-09-06 13:43] VITALS: BP 104/77; PULSE 85; RESP 18; O2SAT 97
--- NOTE | 2020-09-06 15:47 | MHC.CM.ED ---
Patient's sister/HCP, Elsa, arrived to the ER to visit with patient. After speaking with patient and Keri CORK TIPPER, it has been decided that patient will be going on hospice. Elsa would prefer patient go to a facility. [facility] Referral broadcasted to all facilities within 10 miles. Patient only has Medicare, not [facility]. T/W left a voicemail for [facility] nurseJudson at [phone], requesting a return telephone call. Continue to monitor for d/c needs.
--- NOTE | 2020-09-06 16:32 | PC.NURSE ---
Pt placed in hospital bed for comfort. Sister Elsa (HCP) was at bedside earlier and the decision was made to make the pt ANTISQUEAK CHALKER status. Case mgt is aware and the plan will be placement in a SNF.
--- NOTE | 2020-09-06 17:47 | PC.NURSE ---
PT refused VS at this time. He states that he is tired but does not need anything at the moment.
[2020-09-06] MEDS: OLANZapine 10 MG TABLET 20 MG PO (21:10)
[2020-09-06] MEDS: Lithium Carbonate 300 MG TABLET 150 MG PO (21:10)
[2020-09-06 21:13] VITALS: PULSE 86; RESP 18
[2020-09-07] MEDS: Ascorbic Acid 500 MG TABLET PO (09:32)
[2020-09-07] MEDS: Docusate Sodium 100 MG CAPSULE PO (09:32)
[2020-09-07] MEDS: Ferrous Sulfate 324 MG TABLET.DR PO (09:32)
[2020-09-07] MEDS: Furosemide 20 MG TABLET PO (09:32)
[2020-09-07] MEDS: Gabapentin 100 MG CAPSULE PO (09:32)
[2020-09-07] MEDS: Folic Acid 1 MG TABLET PO (09:32)
[2020-09-07 09:35] VITALS: BP 100/56; PULSE 77
--- NOTE | 2020-09-07 09:35 | MHC.CM.ED ---
Patient remains in the ER. T/W spoke with Angelica at [facility]. She will reach out to sister for hospice informational meeting. Continue to monitor for d/c needs.
--- NOTE | 2020-09-07 12:04 | MHC.CM.ED ---
Patient's sister/HCP, Elsa came to visit patient. New MLOST completed with Elsa and Terra ROACH. [facility] will contact Elsa for informational today. T/W explained patient's [facility] was not active. Also explained [facility] will not be open before Tuesday to find out why. Per Elsa, if patient's [facility] is not active and he is under hospice, his long term will be willing to take him back to care for him. Continue to contra [facility] for d/c needs.
--- NOTE | 2020-09-07 13:13 | MHC.CM.ED ---
Received telephone call from AMBERLY Roper nurse. Discussed returning to senior care with hospice. Ant has to speak to the program architect, but doesn't feel it will be an issue. Continue to monitor for d/c needs.
--- NOTE | 2020-09-07 15:01 | MHC.CM.ED ---
Received telephone call from Chantell at [facility]. She spoke with patient's sister/HCP, Elsa. Chantell will make sure their nurse and social work specialist meet with patient's [facility] tomorrow morning and than will contact case management. Continue to monitor for d/c needs.
[2020-09-07 23:59] VITALS: BP 102/60; PULSE 83; RESP 16; TEMP 36.6; O2SAT 97
[2020-09-08 02:00] VITALS: BP 109/67; PULSE 82; RESP 16; TEMP 37.2; O2SAT 95
[2020-09-08 06:00] VITALS: BP 90/54; PULSE 81; RESP 15; O2SAT 96
--- NOTE | 2020-09-08 07:30 | PC.NURSE ---
pt tolerated breakfast this morning
[2020-09-08] MEDS: Megestrol Acetate 400 MG/10 ML ORAL.SUSP 800 MG PO (10:06)
[2020-09-08] MEDS: Ascorbic Acid 500 MG TABLET PO (10:06)
[2020-09-08] MEDS: Furosemide 20 MG TABLET PO (10:06)
[2020-09-08] MEDS: Docusate Sodium 100 MG CAPSULE PO (10:07)
[2020-09-08] MEDS: Ferrous Sulfate 324 MG TABLET.DR PO (10:07)
[2020-09-08] MEDS: Folic Acid 1 MG TABLET PO (10:07)
[2020-09-08] MEDS: Gabapentin 100 MG CAPSULE PO (10:07)
--- NOTE | 2020-09-08 10:20 | PC.NURSE ---
PT TALKING THIS MORNING TAKING MEDICATIONS AND HAVING SNACKS
[2020-09-08 14:00] VITALS: RESP 18
--- NOTE | 2020-09-08 14:21 | PC.NURSE ---
PT REFUSED TO EAT LUNCH, OFFERD DRINKS AND REFUSED AT THIS TIME. PATIENTS NEEDS BEING MET
--- NOTE | 2020-09-08 16:10 | MHC.CM.ED ---
i spoke c pt's sister, nancy, just now as she was here visiting her brother. she would like patient to return to the senior care on palliative. a ref. for this has been made for [facility]. there were no other requests from the sister. hospice was notified of this as well as PA in the e.d. cm to cont. to follow.
[2020-09-08 16:28] VITALS: BP 89/50; PULSE 77; RESP 16; O2SAT 94
--- NOTE | 2020-09-08 20:15 | MHC.CM.ED ---
Addendum entered by Rosalinda Zavaleta 09/08/20 20:41: Paola ROACH and Kianna ROACH aware. Original Note: CM spoke with Verenice, from [facility] regarding pt and palliative care. Per Verenice, ? if pt is already a pt with [facility]. Verenice also questioned what skill the pt would come into palliative/[facility] care with. Stated that F2F would need to document that. Confirmed with Judson, nurse at half-way that pt has been receiving services from [facility] for several weeks. Per Judson, he would rather have [facility].Only concern is if [facility] has a palliative care component to their hospice. Will reach out to [facility] in the am and then contact Elsa, HCP/sister for her input. It may make sense to continue with a service the pt is already involved with. Judson also had concerns about pt possibly receiving his chemotherapy tomorrow. RN aware. Will speak to provider. Provider is aware. Provider and HCP are making decisions regarding pt plan of care. Judson's input is appreciated. When CM looked in on the patient, he was sleeping. Per RN, patient is refusing some medications and food. Provider will order speech evaluation to assess needs for thicken liquids. CM continues to follow for d/c needs. D/C plan is home to half-way with [facility] palliative care. Agency to be determined.
[2020-09-09] VITALS: PULSE 67; RESP 16; O2SAT 96
--- NOTE | 2020-09-09 03:51 | PC.NURSE ---
PATIENT HAVING A COMPLETE BED CHANGE AND URINE CLEANED OFF THE FLOOR AFTER SPILLING A URINAL. PATIENT IS ALERT, NO DISTRESS NOTED. HOSPITAL ATTIRE CHANGED. IV ACCESS REMOVED DUE TO LENGTH OF TIME IT HAS BEEN PLACED. PATIENT REQUESTING TO NOT HAVE IV ACCESS PLACED AGAIN AT THIS TIME. ASKING ABOUT PLAN OF CARE FOR RETURNING TO THE LONG-TERM. CASE MANAGEMENT WILL FOLLOW UP WITH PATIENT IN THE AM AND UPDATE PATIENT REGARDING A TIME LINE.
[2020-09-09 06:00] VITALS: BP 107/65; BP 88/57; PULSE 80; PULSE 84; RESP 16; O2SAT 96; O2SAT 98
--- NOTE | 2020-09-09 07:45 | PC.NURSE ---
pt refused am meds states im not taking them!
--- NOTE | 2020-09-09 09:41 | PC.NURSE ---
pt continues to refuse am meds and breakfast. pt requesting orange juice- given. speech at bedside to discuss recent barium swallow. plan from now on for nectar thick liquids and chopped diet. will add nectar thick to oj. pt readjusted in bed and sat up. plan for cm to to set up palliative care at [facility].
--- NOTE | 2020-09-09 10:48 | MHC.SLORD ---
TITLE ASSISTANT spoke with RN and provider regarding recommendations following MBSS completed on 09/05/20. Aspiration was visualized with thin liquids. Pt recommended NECTAR THICK LIQUIDS and CHOPPED ADVANCED solids (NDD3) with pills whole in puree or liquid depending on pt's preference/tolerance. [place] aspiration precautions apply. TITLE ASSISTANT will continue to follow as requested. Celina Ortiz MA,CF-TITLE ASSISTANT Name: Poncho Toney Date of : 1955 Age: 64 Date of Registration: 09/04/20 Speech Language Pathology Order Status:
--- NOTE | 2020-09-09 10:49 | MHC.CM.ED ---
Patient remains in ER. Spoke to Verenice of [facility]. Patient is active with [facility] for assisted. She is unsure if patient wants to stay with [facility] until hopsice is needed. Spoke with Judson [facility] nurse. [facility] to hospice with the same agency when needed. [facility] provides pallative care but not hospice. Judson will speak to [facility] to see when patient can leave ER. Verenice from [facility] aware and will accept patient. Face to face completed and signed. Continue to monitor for d/c needs.
--- NOTE | 2020-09-09 11:47 | MHC.SL.IMP ---
Name: Poncho Toney Date of : 1955 Age: 64 Date of Registration: 09/04/20 Date of Plan of Treatment: 09/05/20 Onset of Symptoms/Illness: 09/05/20 Date Treatment Started: 09/05/20 Admitting Diagnosis: Modified Barium Swallow Study Fluoroscopic Evaluation of Swallowing Function CPT Code 22407 Evaluation Year: 2020 Reason for Study: Patient reports globus sensation and decreased appetite. Referring Physician: Preeti Thurman Evaluating Clinician: Yelena Ritter M.A., CCC-SUPERINTENDENT QUARRY Study Number: 1 Patient Name: Poncho Toney Status: Inpatient Age: 64 Gender: Male MEDICAL HISTORY: Primary (admitting) Diagnosis: Squamous cell carcinoma of lung Year of Onset or Diagnosis: 2020 Comorbidities: Asthma ESTER Schizoaffective disorder bipolar type Current (pre-evaluation) Intake/Diet: Route: PO Diet Grade: Regular Liquid Consistencies: Thin Pre-Study Functional Oral Intake Scale (FOIS): 7- Total oral intake with no restrictions Pain: None reported at time of study Primary Speech & Language Diagnosis: R13.12 Oropharyngeal Phase Dysphagia Secondary Speech & Language Diagnosis: Reason for Today's Visit: 25531 Modified Barium Swallow Study Comments: Pre-evaluation Dietary Consistencies: Regular Pre-evaluation Liquid Consistency: Thin Pre-evaluation Medication Administration: Whole with Liquid Medical History: Squamous cell carcinoma of lung Asthma ESTER Schizoaffective disorder bipolar type Oral Motor Exam Facial Symmetry: Symmetrical Facial Movement: Oral-Facial Facial Miscellaneous Observations: Mouth Occlusion: Teeth Separation Oral-Facial Teeth Characteristics: Partially Missing Oral-Facial Teeth Miscellaneous Observation: Patient missing central incisors on top jaw. Limited dentition. Oral-Facial Lip Pucker Description: Normal Oral-Facial Smile (Lips) Description: Normal Oral-Facial Puff Cheeks Description: Reduced Strength Oral-Facial Lip Miscellaneous Comment: Tongue Size: Normal Tongue Frenum Length: Tongue Excursion Description: Tongue Range of Movement Description: Tongue Speed of Movement Description: Tongue Strength of Movement (against opposing pressure): Tongue Movement Characteristics: Tongue Movement Miscellaneous Observation: Oral Expression Ability: Is patient able to manage secretions?: Yes Is patient able to produce volitional cough?: Food and Liquid Trials: Oral Impairment: Lip Closure: 0=No labial escape Oral Impairment: Tongue Control During Bolus Hold: 3=Posterior escape of greater than half of bolus Oral Impairment: Bolus Preparation/Mastication: 1=Slow prolonged chewing/mashing with complete re-collection Oral Impairment: Bolus Transport/Lingual Motion: 3=Repetitive/disorganized tongue motion Oral Impairment: Oral Residue: 2=Residue collection on oral structures Oral Impairment:Initiation of Pharyngeal Swallow: 3=Bolus head in pyriforms Pharyngeal Impairment: Soft Palate Elevation: 0=No bolus between soft palate (SP)/pharyngeal wall (PW) Pharyngeal Impairment: Larngeal Elevation: 2=Minimal superior movement of thyroid cartilage (see description) Pharyngeal Impairment: Anterior Hyoid Excursion: 1=Partial anterior movement Pharyngeal Impairment: Epiglottic Movement: 1=Partial inversion Pharyngeal Impairment: Laryngeal Vestibular Closure:: 1=Incomplete: narrow column air/contrast in laryngeal vestibule Pharyngeal Impairment: Pharyngeal Stripping Wave: 2=Absent Pharyngeal Impairment: Pharyngeal Contraction: Did not test Pharyngeal Impairment: Pharyngoesophageal Segment Openin=Complete distension and complete duration: no obstruction of flow Pharyngeal Impairment: Tongue Base (TB) Retraction: 3=Wide column of contrast/air between TB and posterior PW Pharyngeal Impairment: Pharyngeal Residue: 2=Collection of residue within or on pharyngeal structures Pharyngeal Impairment: Espohogeal Clearance Upright Position: Did not test Impressions and Recommendations Clinicial Observations: OBJECTIVE: Time-out: performed at 02:30 Evaluation Start: 02:15; Stop: 02:20 Patient Positioning: Seated 70-90 degrees Viewing Planes: LATERAL ONLY Contrast: Non-standardized. [facility] ID: [id number] [facility] Results: Lip closure for intraoral bolus containment resulted in no labial escape. Tongue control during bolus hold allowed posterior escape of greater than half of the bolus. Bolus preparation and mastication resulted in slow, prolonged chewing/mashing but with complete re-collection. Bolus transport/lingual motion was with repetitive/disorganized motion of the tongue. Oral residue was a collection on oral structures. Initiation of the pharyngeal swallow occurred when the bolus head was in the pyriform sinuses. Soft palate elevation resulted in no bolus between the soft palate and the pharyngeal wall. Laryngeal elevation was incomplete, as indicated through minimal superior movement of the thyroid cartilage with minimal approximation of the arytenoids to the epiglottic petiole. Anterior hyoid excursion demonstrated partial anterior movement. Epiglottic movement resulted in partial inversion. Laryngeal vestibular closure was incomplete, with a narrow column of air/contrast noted within the laryngeal vestibule at the height of the swallow. Pharyngeal stripping wave was absent. Pharyngeal contraction could not be determined due to logistical reasons not related to physiologic impairment. Pharyngoesophageal segment opening was completely distended for complete duration with no obstruction of bolus flow. Tongue base retraction allowed a wide column of contrast or air between the retracted tongue base and the posterior pharyngeal wall. Pharyngeal residue was a collection of residue within or on pharyngeal structures. Esophageal clearance in the upright position could not be assessed due to logistical reasons not related to physiologic impairment. Oral Impairment Score: 12 Pharyngeal Impairment Score: 12 (absence of score, component 13) Esophageal Impairment Score: --- (absence of score, component 17) Laryngeal Penetration and Aspiration: DEEP penetration observed in today's study. Thin Contrast entered the airway, passed below the vocal folds, and ejected (silent penetration) with question of trace aspiration as well on THIN LIQUIDS. No effort was made to eject. ASSESSMENT: This exam was conducted by speech-language pathologist and radiologist, with patient seated upright at 90 degree position in his chair for LATERAL view only. Patient was able to feed himself. Patient refused chicken salad, but was agreeable to other trials. Please note that standardized thin liquid barium was not available at the time of this study. For that reason, nectar thick liquid barium was diluted with water to achieve thin liquid. Patient trialed the following liquid and solid consistencies: -5 mL thin liquid barium -cup sip thin liquid barium -teaspoon sip nectar thick liquid barium -cup sip nectar thick liquid barium -teaspoon sip honey thick liquid barium -pureed solid (applesauce mixed with barium paste) -regular solid (Juany Doone cookie coated in barium paste) Patient displays severe oropharyngeal dysphagia, characterized by impairments in the following components of swallow physiology: ORAL PHASE: -Posterior escape of GREATER THAN half of bolus when drinking liquids; posterior escape of less than half of bolus when eating solids -Slow/prolonged mastication/ chewing -Repetitive and disorganized posterior tongue movements -Mild oral residue -Delayed pharyngeal swallow trigger when bolus head reached pyriforms PHARYNGEAL PHASE: -Minimal to partial laryngeal excursion of movement with partial anterior hyoid movement and partial epiglottic inversion -Incomplete laryngeal vestibular closure- This exam showed evidence of deep penetration and question of trace aspiration when patient drank thin liquid barium. Thin contrast entered the airway, reached the vocal folds, and subsequently ejected. At the end of the examination, patient took final sip of thin liquid barium, resulting in premature posterior escape of majority of bolus and penetration during the swallow- There is question whether trace amount of this liquid did enter the airway. No aspiration or penetration with nectar thick and honey thick liquids. -Reduced tongue base retraction -Pooling in valleculae and pyriforms when drinking liquid- This effectively cleared with double swallow -Moderate pharyngeal retention in valleculae and pyriforms which increased when eating harder solid. Multiple swallow and liquid wash reduced residue. The following compensatory strategies have not been used until today's study, but when employed, improved swallowing function: Long-thick Liquid eliminated Penetration, Aspiration Honey-thick Liquid eliminated Penetration, Aspiration Bolus Volume Change decreased Penetration, Oral Residue, Pharyngeal Residue Rate of Ingestion Change decreased Oral Residue, Pharyngeal Residue Liquid Wash decreased Oral Residue, Pharyngeal Residue Additional Swallow(s) per Bolus decreased Oral Residue, Pharyngeal Residue Throat Clear decreased Oral Residue, Pharyngeal Residue Liquid Intake Recommendation: Long Thick Liquid Intake Strategies: Small Sips No Straws Double Swallow Dietary Recommendations: Chopped/Advanced (NDD3) Medication Administration: Whole with Puree Compensatory Strategies Recommended: Sitting Upright (90 deg) No Straw Liquids from Cup Small Bites and Sips Alternate Liquids/Solids Rate of Ingestion Change Supervision during eating and or drinking: Total Supervision (1:1) Recommended Treatments: Base of Tongue Exercises Pharyngeal Resistive Exer Compens. Strategy Educat. Recommendation for Speech Therapy: Outpatient Speech Therapy Inpatient Speech Therapy Speech Therapy through [facility]: Intake Recommendations: Route: PO Diet Grade: CHOPPED/ADVANCED ? National Dysphagia Diet Level 3 Liquid Consistencies: Long Post-Study Functional Oral Intake Scale (FOIS): 5- Total oral intake of multiple consistencies requiring special preparation Patient is recommended to continue intervention for dysphagia with a speech language pathologist during inpatient stay and at next level of care after discharge ([facility] or outpatient). Patient displays severe oropharyngeal dysphagia. Recommend modified diet CHOPPED/ADVANCED solids (NDD3) and NECTAR THICK liquids, with pills WHOLE or CRUSHED in PUREE. Patient is able to feed himself, but is recommended supervision to ensure aspiration precautions. Please refer to guidelines per NATIONAL DYSPHAGIA DIET LEVEL 3 (NDD3). Recommend cutting food into small bite size pieces and moistening with sauce/gravy whenever possible. The following strategies are crucial for patient to tolerate PO: -Sit upright during PO intake and for at least 30 minutes afterwards -Small bites, chew food well -Alternate bite of food with small sip of liquid to promote oral and pharyngeal clearance -Double swallow with each sip of liquid -Sip liquid by cup -NO STRAW due to delay in pharyngeal swallow trigger -One sip at a time- avoid chugging or sequential cup sips -Frequent oral care before and after meals or at the least 4 times daily -Monitor closely for any overt signs or symptoms of aspiration Therapy Recommendations: Therapy will be initiated The following compensatory strategies and/or therapeutic exercises will be part of the upcoming therapy/management plan: Long-thick Liquid Bolus Volume Change Rate of Ingestion Change Liquid Wash Additional Swallow(s) per Bolus Throat Clear Prognosis for Improvement: The prognosis for the patient to meet nutritional needs by mouth is poor based on degree of impairment. Frequency/Duration: Date Range for Service Requested: Timeline to reassess: 3 months Caustic Preparer Clinican/Clinical Fellow: No Supervisory Statement: N/A Speech Language Pathologist: Yelena Ritter M.A., CCC-SUPERINTENDENT QUARRY
[2020-09-09 13:05] VITALS: BP 99/63; PULSE 79; RESP 16; TEMP 37.3; O2SAT 94
--- NOTE | 2020-09-09 13:07 | MHC.CM.ED ---
Attempted to speak to [facility]BER[facility] nurse via telephone at [phone] to see when patient can return to assisted. Left message requesting return telephone call. Continue to monitor for d/c needs.
[2020-09-09 14:00] VITALS: RESP 16
--- NOTE | 2020-09-09 14:17 | MHC.CM.ED ---
Spoke with [facility] nurse. Patient can return to long-term. Dr Abad's office scheduled immunotherapy for Tuesday. [facility] booked for 3pm. Harleen at patient's long-term notified via telephone at [phone]. Patient's sister/HCP Elsa notified via telephone. Patient, Sabrina RN and Keri BOGGS aware. Continue to monitor for d/c needs.
--- NOTE | 2020-09-09 14:46 | PC.NURSE ---
plan for dc to snf at 3pm
--- NOTE | 2020-09-10 10:02 | MHC.SLORD ---
Documentation by Celina Ortiz M.A. CF-PROGRAM MANAGER on 09/09/20 is reviewed and signed by this supervising clinician. Name: Poncho Toney Date of : 1955 Age: 64 Date of Registration: 09/04/20 Speech Language Pathology Order Status:
--- NOTE | 2020-09-12 13:32 | MHC.SL.IMP ---
Name: Poncho Toney Date of : 1955 Age: 64 Date of Registration: 09/04/20 Date of Plan of Treatment: 09/05/20 Onset of Symptoms/Illness: 09/05/20 Date Treatment Started: 09/05/20 Admitting Diagnosis: Modified Barium Swallow Study Fluoroscopic Evaluation of Swallowing Function CPT Code 42209 Evaluation Year: 2020 Reason for Study: Patient reports globus sensation and decreased appetite. Referring Physician: Preeti Thurman Evaluating Clinician: Yelena Ritter M.A., CCC-VACUUM EVAPORATION OPERATOR Study Number: 1 Patient Name: Poncho Toney Status: Inpatient Age: 64 Gender: Male MEDICAL HISTORY: Primary (admitting) Diagnosis: Squamous cell carcinoma of lung Year of Onset or Diagnosis: 2020 Comorbidities: Asthma ESTER Schizoaffective disorder bipolar type Current (pre-evaluation) Intake/Diet: Route: PO Diet Grade: Regular Liquid Consistencies: Thin Pre-Study Functional Oral Intake Scale (FOIS): 7- Total oral intake with no restrictions Pain: None reported at time of study Primary Speech & Language Diagnosis: R13.12 Oropharyngeal Phase Dysphagia Reason for Today's Visit: 80551 Modified Barium Swallow Study Pre-evaluation Dietary Consistencies: Regular Pre-evaluation Liquid Consistency: Thin Pre-evaluation Medication Administration: Whole with Liquid Medical History: Squamous cell carcinoma of lung Asthma ESTER Schizoaffective disorder bipolar type Oral Motor Exam Facial Symmetry: Symmetrical Mouth Occlusion: Teeth Separation Oral-Facial Teeth Characteristics: Partially Missing Oral-Facial Teeth Miscellaneous Observation: Patient missing central incisors on top jaw. Limited dentition. Oral-Facial Lip Pucker Description: Normal Oral-Facial Smile (Lips) Description: Normal Oral-Facial Puff Cheeks Description: Reduced Strength Tongue Size: Normal Tongue Frenum Length: Is patient able to manage secretions?: Yes Food and Liquid Trials: Oral Impairment: Lip Closure: 0=No labial escape Oral Impairment: Tongue Control During Bolus Hold: 3=Posterior escape of greater than half of bolus Oral Impairment: Bolus Preparation/Mastication: 1=Slow prolonged chewing/mashing with complete re-collection Oral Impairment: Bolus Transport/Lingual Motion: 3=Repetitive/disorganized tongue motion Oral Impairment: Oral Residue: 2=Residue collection on oral structures Oral Impairment:Initiation of Pharyngeal Swallow: 3=Bolus head in pyriforms Pharyngeal Impairment: Soft Palate Elevation: 0=No bolus between soft palate (SP)/pharyngeal wall (PW) Pharyngeal Impairment: Larngeal Elevation: 2=Minimal superior movement of thyroid cartilage (see description) Pharyngeal Impairment: Anterior Hyoid Excursion: 1=Partial anterior movement Pharyngeal Impairment: Epiglottic Movement: 1=Partial inversion Pharyngeal Impairment: Laryngeal Vestibular Closure:: 1=Incomplete: narrow column air/contrast in laryngeal vestibule Pharyngeal Impairment: Pharyngeal Stripping Wave: 2=Absent Pharyngeal Impairment: Pharyngeal Contraction: Did not test Pharyngeal Impairment: Pharyngoesophageal Segment Openin=Complete distension and complete duration: no obstruction of flow Pharyngeal Impairment: Tongue Base (TB) Retraction: 3=Wide column of contrast/air between TB and posterior PW Pharyngeal Impairment: Pharyngeal Residue: 2=Collection of residue within or on pharyngeal structures Pharyngeal Impairment: Espohogeal Clearance Upright Position: Did not test Impressions and Recommendations Clinicial Observations: OBJECTIVE: Time-out: performed at 02:30 Evaluation Start: 02:15; Stop: 02:20 Patient Positioning: Seated 70-90 degrees Viewing Planes: LATERAL ONLY Contrast: [facility]standardized. [id number] Results: Lip closure for intraoral bolus containment resulted in no labial escape. Tongue control during bolus hold allowed posterior escape of greater than half of the bolus. Bolus preparation and mastication resulted in slow, prolonged chewing/mashing but with complete re-collection. Bolus transport/lingual motion was with repetitive/disorganized motion of the tongue. Oral residue was a collection on oral structures. Initiation of the pharyngeal swallow occurred when the bolus head was in the pyriform sinuses. Soft palate elevation resulted in no bolus between the soft palate and the pharyngeal wall. Laryngeal elevation was incomplete, as indicated through minimal superior movement of the thyroid cartilage with minimal approximation of the arytenoids to the epiglottic petiole. Anterior hyoid excursion demonstrated partial anterior movement. Epiglottic movement resulted in partial inversion. Laryngeal vestibular closure was incomplete, with a narrow column of air/contrast noted within the laryngeal vestibule at the height of the swallow. Pharyngeal stripping wave was absent. Pharyngeal contraction could not be determined due to logistical reasons not related to physiologic impairment. Pharyngoesophageal segment opening was completely distended for complete duration with no obstruction of bolus flow. Tongue base retraction allowed a wide column of contrast or air between the retracted tongue base and the posterior pharyngeal wall. Pharyngeal residue was a collection of residue within or on pharyngeal structures. Esophageal clearance in the upright position could not be assessed due to logistical reasons not related to physiologic impairment. Oral Impairment Score: 12 Pharyngeal Impairment Score: 12 (absence of score, component 13) Esophageal Impairment Score: --- (absence of score, component 17) Laryngeal Penetration and Aspiration: DEEP penetration observed in today's study. Thin Contrast entered the airway, passed below the vocal folds, and ejected (silent penetration) with question of trace aspiration as well on THIN LIQUIDS. No effort was made to eject. ASSESSMENT: This exam was conducted by speech-language pathologist and radiologist, with patient seated upright at 90 degree position in his chair for LATERAL view only. Patient was able to feed himself. Patient refused chicken salad, but was agreeable to other trials. Please note that standardized thin liquid barium was not available at the time of this study. For that reason, nectar thick liquid barium was diluted with water to achieve thin liquid. Patient trialed the following liquid and solid consistencies: -5 mL thin liquid barium -cup sip thin liquid barium -teaspoon sip nectar thick liquid barium -cup sip nectar thick liquid barium -teaspoon sip honey thick liquid barium -pureed solid (applesauce mixed with barium paste) -regular solid (Juany Doone cookie coated in barium paste) Patient displays severe oropharyngeal dysphagia, characterized by impairments in the following components of swallow physiology: ORAL PHASE: -Posterior escape of GREATER THAN half of bolus when drinking liquids; posterior escape of less than half of bolus when eating solids -Slow/prolonged mastication/ chewing -Repetitive and disorganized posterior tongue movements -Mild oral residue -Delayed pharyngeal swallow trigger when bolus head reached pyriforms PHARYNGEAL PHASE: -Minimal to partial laryngeal excursion of movement with partial anterior hyoid movement and partial epiglottic inversion -Incomplete laryngeal vestibular closure- This exam showed evidence of deep penetration and question of trace aspiration when patient drank thin liquid barium. Thin contrast entered the airway, reached the vocal folds, and subsequently ejected. At the end of the examination, patient took final sip of thin liquid barium, resulting in premature posterior escape of majority of bolus and penetration during the swallow- There is question whether trace amount of this liquid did enter the airway. No aspiration or penetration with nectar thick and honey thick liquids. -Reduced tongue base retraction -Pooling in valleculae and pyriforms when drinking liquid- This effectively cleared with double swallow -Moderate pharyngeal retention in valleculae and pyriforms which increased when eating harder solid. Multiple swallow and liquid wash reduced residue. The following compensatory strategies have not been used until today's study, but when employed, improved swallowing function: [place]-thick Liquid eliminated Penetration, Aspiration Honey-thick Liquid eliminated Penetration, Aspiration Bolus Volume Change decreased Penetration, Oral Residue, Pharyngeal Residue Rate of Ingestion Change decreased Oral Residue, Pharyngeal Residue Liquid Wash decreased Oral Residue, Pharyngeal Residue Additional Swallow(s) per Bolus decreased Oral Residue, Pharyngeal Residue Throat Clear decreased Oral Residue, Pharyngeal Residue Liquid Intake Recommendation: [place] Thick Liquid Intake Strategies: Small Sips No Straws Double Swallow Dietary Recommendations: Chopped/Advanced (NDD3) Medication Administration: Whole with Puree Compensatory Strategies Recommended: Sitting Upright (90 deg) No Straw Liquids from Cup Small Bites and Sips Alternate Liquids/Solids Rate of Ingestion Change Supervision during eating and or drinking: Total Supervision (1:1) Recommended Treatments: Base of Tongue Exercises Pharyngeal Resistive Exer Compens. Strategy Educat. Recommendation for Speech Therapy: Outpatient Speech Therapy Inpatient Speech Therapy Speech Therapy through [facility] PLAN: Intake Recommendations: Route: PO Diet Grade: CHOPPED/ADVANCED ? National Dysphagia Diet Level 3 Liquid Consistencies: [place] Post-Study Functional Oral Intake Scale (FOIS): 5- Total oral intake of multiple consistencies requiring special preparation Patient is recommended to continue intervention for dysphagia with a speech language pathologist during inpatient stay and at next level of care after discharge ([facility] or outpatient). Patient displays severe oropharyngeal dysphagia. Recommend modified diet CHOPPED/ADVANCED solids (NDD3) and NECTAR THICK liquids, with pills WHOLE or CRUSHED in PUREE. Patient is able to feed himself, but is recommended supervision to ensure aspiration precautions. Please refer to guidelines per NATIONAL DYSPHAGIA DIET LEVEL 3 (NDD3). Recommend cutting food into small bite size pieces and moistening with sauce/gravy whenever possible. The following strategies are crucial for patient to tolerate PO: -Sit upright during PO intake and for at least 30 minutes afterwards -Small bites, chew food well -Alternate bite of food with small sip of liquid to promote oral and pharyngeal clearance -Double swallow with each sip of liquid -Sip liquid by cup -NO STRAW due to delay in pharyngeal swallow trigger -One sip at a time- avoid chugging or sequential cup sips -Frequent oral care before and after meals or at the least 4 times daily -Monitor closely for any overt signs or symptoms of aspiration Therapy Recommendations: Therapy will be initiated The following compensatory strategies and/or therapeutic exercises will be part of the upcoming therapy/management plan: [place]-thick Liquid Bolus Volume Change Rate of Ingestion Change Liquid Wash Additional Swallow(s) per Bolus Throat Clear Prognosis for Improvement: The prognosis for the patient to meet nutritional needs by mouth is poor based on degree of impairment. Timeline to reassess: 3 months Block Inspector Clinican/Clinical Fellow: No Supervisory Statement: N/A Speech Language Pathologist: Yelena Ritter M.A., CCC-VACUUM EVAPORATION OPERATOR
--- NOTE | 2020-09-12 14:19 | MHC.SLORD ---
DISTRESSER called and spoke with front desk receptionist at [facility]. DISTRESSER left message for patient's PCP Talha Doherty M.D., who had ordered outpatient MBSS, scheduled on 09/03. Patient did no show up for that appointment. Patient was brought to ED due to dysphagia and MBSS completed while patient was in the ED on 09/05. Evidence of deep penetration and questionable trace aspiration when drinking thin liquids. Patient was recommended modified diet CHOPPED/ADVANCED (NDD3) solids and NECTAR THICK liquids. Patient returned to ED on 09/09 and speech consult was made again. DISTRESSER reviewed MBSS results and recommendations in ED. Today DISTRESSER called and left message for PCP notifying of recommendations. DISTRESSER left call-back number. MBSS report was faxed to PCP as well. Name: Poncho Toney Date of : 1955 Age: 64 Date of Registration: 09/04/20 Speech Language Pathology Order Status:
== END 2020-09-09 15:36 | disposition home or self-care (01) ==
PROVIDERS: Nurse Practitioner Family; Emergency Provider Emergency Medicine Emergency Medical Services; PCP Internal Medicine
DX: R62.7 Adult failure to thrive (principal); R13.10 Dysphagia, unspecified; F25.0 Schizoaffective disorder, bipolar type; Z20.822 Contact with and (suspected) exposure to COVID-19; F11.10 Opioid abuse, uncomplicated; J45.909 Unspecified asthma, uncomplicated; F17.210 Nicotine dependence, cigarettes, uncomplicated; Z85.118 Personal history of other malignant neoplasm of bronchus and lung; Z85.05 Personal history of malignant neoplasm of liver; Z91.14 Patient's other noncompliance with medication regimen; Z91.19 Patient's noncompliance with other medical treatment and regimen; Z91.11 Patient's noncompliance with dietary regimen; Z79.899 Other long term (current) drug therapy
CPT/HCPCS: 36415; 71045; 74230; 80048; 80076; 81003; 83735; 84484; 85025; 85610; 87635; 93005; 96360; 97162; 99285

== ENCOUNTER → 2024-03-07 14:42 | Outpatient (RCR) | payer MEDICARE, SELFPAY ==
[2020-07-17 14:33] VITALS: BP 113/68; PULSE 89; RESP 12; TEMP 36.8; O2SAT 98; BMI 22.4
--- NOTE | 2020-07-17 14:35 | P.PNHO_ITS ---
Medical Summary - Medical Summary Date of Service: 08/02/20 Chief complaint: Follow-up for: Lung cancer. 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 CURRENT THERAPY: Status post-VATS excision on January 27, 2018 The pathology revealed: A. LEFT POSTERIOR CHEST WALL MARGIN: FRAGMENTS OF UNREMARKABLE FIBROADIPOSE TISSUE. THERE IS NO EVIDENCE OF METASTATIC CARCINOMA SEEN. B. LYMPH NODE, LEVEL 9 #1, BIOPSY: BENIGN LYMPH NODE WITH NO EVIDENCE OF METASTATIC CARCINOMA (0/1). C. LYMPH NODE, LEVEL 9 #2, BIOPSY: BENIGN LYMPH NODE WITH NO EVIDENCE OF METASTATIC CARCINOMA (0/1). D. LYMPH NODE, LEVEL 10 #1, BIOPSY: BENIGN LYMPH NODE WITH NO EVIDENCE OF METASTATIC CARCINOMA (0/1). E. LYMPH NODE, LEVEL 10 #2, BIOPSY: BENIGN LYMPH NODE WITH NO EVIDENCE OF METASTATIC CARCINOMA (O/1). F. LYMPH NODE, LEVEL 11, BIOPSY: BENIGN LYMPH NODE WITH NO EVIDENCE OF METASTATIC CARCINOMA (O/1). G. LYMPH NODE, LEVEL 5, BIOPSY: BENIGN LYMPH NODE WITH NO EVIDENCE OF METASTATIC CARCINOMA (0/1). H. LEFT LOWER LOBE, LOBECTOMY: INVASIVE POORLY DIFFERENTIATED SQUAMOUS CELL CARCINOMA. TUMOR SIZE: 2.6 X 2.5 CM. TUMOR FOCALITY: SINGLE FOCUS. HISTOLOGIC TYPE: SQUAMOUS CELL CARCINOMA. HISTOLOGIC GRADE: 3. VISCERAL PLEURA INVASION: PRESENT ON ELASTIN STAIN (PL2). LYMPHOVASCULAR INVASION: NOT IDENTIFIED. DIRECT INVASION OF ADJACENT STRUCTURES: NOT IDENTIFIED. CURRENT THERAPY: Status post first cycle of Carbo/Gemzar April 12, 2018. Cycle 2 April. Cycle 4. June 14, 2018. Now with disease recurrence. Interval History Interval history: 64-year-old gentleman here for a follow-up visit. He has been doing quite well. He has had occasional cough with difficulty bringing up phlegm. However he denies chest pain or trouble breathing. No fever nor chills. He denies easy fatigability. No abdominal pain nausea vomiting heartburn indigestion. His bowels are working regular now, without any gross blood in it. He had constipation, the Colace is helping that. He enjoys a good appetite. He has gained weight. He is trying to eat a healthy diet and exercise. He is quite active. He is in a good mood today. He is in good spirits. Rest of the review of systems is unremarkable. CT scan of the chest from 03/30 revealed: An ill-defined left central left hilar mass occludes the left upper lobe bronchi proximally (status post left lower lobectomy) with extensive left lung consolidation, consistent with postobstructive pneumonia. There is mediastinal, retrocrural, and upper retroperitoneal lymphadenopathy consistent with metastatic disease. There are ill-defined liver lesions consistent with liver metastases. No pulmonary embolus seen. Lung, left upper lobe, endobronchial biopsy: Predominantly necrotic tumor present, consistent with patient's known history of poorly differentiated squamous cell carcinoma of lung primary. Sections show the tumor cells to be predominantly crushed and necrotic involving the bronchial mucosa. Immunostains show the tumor cells to be positive for p63, cytokeratins, and CK5/6 while negative for p40, synaptophysin, chromogranin, CD45, CD20 and CD3. Immunostain for CD56 shows non-specific staining. Note is made of patient's history of squamous cell carcinoma resection ([id number]) that is reviewed at this time. The morphologic features and immunohistochemical stain profile support a recurrent poorly differentiated squamous cell carcinoma of the lung. See also corresponding cytoloy bronchial washing. He was referred for radiation further bronchial obstruction. He has completed that. He is now here to begin systemic therapy. Review of Systems - Constitutional Reports system reviewed and no additional complaints, except as documented, Denies body ache(s), Denies lack of energy - Eyes Reports system reviewed and no additional complaints, except as documented, Denies bulging eyes - ENT Reports system reviewed and no additional complaints, except as documented - Cardiovascular Reports system reviewed and no additional complaints, except as documented, Denies chest pain at rest - Respiratory Reports no additional respiratory complaints, Denies change in phlegm color - Gastrointestinal Reports system reviewed and no additional complaints, except as documented, Denies abdominal pain, Denies change in bowel habits - Genitourinary Genitourinary: Reports no additional male genitourinary complaints - Musculoskeletal Reports system reviewed and no additional complaints, except as documented, Denies back pain - Integumentary/Breasts Skin/Breast: Reports no additional skin complaints, Denies bleeding lesions - Neurologic Reports system reviewed and no additional complaints, except as documented - Psychiatric Reports system reviewed and no additional complaints, except as documented - Endocrine Reports no additional endocrine complaints, Denies excessive sweating - Hematologic/Lymphatic Reports system reviewed and no additional complaints, except as documented, Denies easy bruising - Allergic/Immunologic Reports system reviewed and no additional complaints, except as documented, Denies GI upset with certain foods PMFSH Medical History: Medical History (Last Updated 07/17/20 @ 07:27 by Meme Forte) Squamous cell carcinoma of lung Functional capacity: uses cane/walker Patient : No Home Medications and Allergies Home Medications Medication Instructions Recorded Confirmed Type ascorbic acid (vitamin C) 1 tab PO BID 07/17/20 07/17/20 History divalproex 1 tab PO BID 07/17/20 07/17/20 History ferrous sulfate 1 tab PO BID 07/17/20 07/17/20 History folic acid 1 tab PO DAILY 07/17/20 07/17/20 History furosemide 1 tab PO DAILY 07/17/20 07/17/20 History gabapentin 100 mg PO BID 07/17/20 07/24/20 History olanzapine 1 tab PO BEDTIME 07/17/20 07/17/20 History Allergies Allergy/AdvReac Type Severity Reaction Status Date / Time No Known Allergies Allergy Unverified 03/27/20 18:57 [No Known Allergies*] Exam - Constitutional Present: no acute distress - Routine HEENT Exam Head: Present: normal inspection Eye: Present: normal appearance ENT: Present: mucous membranes moist - Routine Neck Exam Present: full ROM - Routine Respiratory Exam Present: CTAB - Routine Cardiovascular Exam Cardiovascular: Present: RRR, S1, S2 - Routine Abdominal Exam Present: soft, nontender - Routine Extremities Exam Present: nontender - Routine Back/Spine/Pelvis Exam Back/Spine: Present: full ROM - Routine Skin Exam Present: intact - Routine Neurological Exam Present: alert, oriented X3 - Routine Psychiatric Exam Present: normal affect Data - Labs CBC & Chem 7: 07/24/20 09:30 07/24/20 09:30 Progress Note: A/P (1) Squamous cell carcinoma of lung Status: Acute Assessment and plan: 63-year-old gentleman, with history of smoking, noted to have a left lower lung mass, on CAT scan. Biopsy from November 21 revealed Poorly Differentiated Squamous Cell Carcinoma. PD L1 positive in 95% of tumor cells. PET scan lighted up in the left lower lobe superior segment nodule as well as adenopathy in the left hilum. It was encouraging that mediastinoscopy and bronchoscopy, are both negative. He underwent a left lower lobectomy, by thoracotomy and mediastinal lymphadenectomy, by Dr.Laki Zamudio, on January 27. Pathology revealed: LEFT LOWER LOBE, LOBECTOMY: INVASIVE POORLY DIFFERENTIATED SQUAMOUS CELL CARCINOMA. TUMOR SITE: LEFT LOWER LOBE. TUMOR SIZE: 2.6 X 2.5 CM. TUMOR FOCALITY: SINGLE FOCUS. HISTOLOGIC TYPE: SQUAMOUS CELL CARCINOMA. REGIONAL LYMPH NODES: PERIBRONCHIAL LYMPH NODE POSITIVE FOR METASTATIC SQUAMOUS CELL CARCINOMA (1/1). BENIGN INTRAPARENCHYMAL LYMPH NODE (0/1). PATHOLOGIC STAGE: pT2 pN1. [facility] 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 He recently moved to a retirement. He is adjusting. He had received adjuvant systemic chemotherapy, with 4 cycles of Carboplatin combination, back in the fall. He started with his first cycle of Carbo-Gemzar on April 12. He completed 4 cycles in June,. He tolerated it well. He had a repeat CAT scan done March 29, which revealed: Stable postsurgical changes of the left hemithorax. There however has been interval development of a few sub-5 mm pulmonary nodules. These may represent infectious, inflammatory or possibly metastatic disease. Attention on short-term interval follow-up recommended. A CT scan of the chest to follow-up on the pulmonary nodules, from 03/30 revealed: An ill-defined left central left hilar mass occludes the left upper lobe bronchi proximally (status post left lower lobectomy) with extensive left lung consolidation, consistent with postobstructive pneumonia. There is mediastinal, retrocrural, and upper retroperitoneal lymphadenopathy consistent with metastatic disease. There are ill-defined liver lesions consistent with liver metastases. No pulmonary embolus seen. Lung, left upper lobe, endobronchial biopsy: Predominantly necrotic tumor present, consistent with patient's known history of poorly differentiated squamous cell carcinoma of lung primary. Sections show the tumor cells to be predominantly crushed and necrotic involving the bronchial mucosa. Immunostains show the tumor cells to be positive for p63, cytokeratins, and CK5/6 while negative for p40, synaptophysin, chromogranin, CD45, CD20 and CD3. Immunostain for CD56 shows non-specific staining. Note is made of patient's history of squamous cell carcinoma resection ([id number]) that is reviewed at this time. The morphologic features and immunohistochemical stain profile support a recurrent poorly differentiated squamous cell carcinoma of the lung. See also corresponding cytoloy bronchial washing. He was referred for radiation for the bronchial obstruction. He has completed that. PLAN: The plan is to proceed with second-line treatment with targeted agent. Will use nivolumab. He was offered the treatment and explained details. He agreed to try it and see how it goes. He will return to get started next week. He will return in 1 month for a followup visit. His sister Flower, cells number is [phone]. She will call for any problems prior to that time. Thank you, CC: Dr. Chantel Zamudio. [facility]. [facility]. [address] [place] [address]. - Time Spent With Patient Total time spent is greater than 50% in coordination of care (as documented) at patient's floor/unit and/or counseling patient: 25 - 35 minutes
--- NOTE | 2020-07-17 16:40 | MHC.HEMONC ---
Nivolumab teaching completed with [facility] worker Leticia present and patient's nurse. All questions and concerns addressed. Consent signed by patient. Patient to start on 07/24/20 at 0930. Leticia at [facility] notified. Pharmacy aware. NO PA needed.
[2020-07-24 09:32] VITALS: BP 109/62; PULSE 88; RESP 18; TEMP 36.4; O2SAT 98; BMI 21.9
[2020-07-24 09:48] LABS: Basophils Percent Auto 0.1 % (0-2); Eosinophils Percent Auto 0.3 % (0-4); Hematocrit 43.7 % (42-52); Hemoglobin 14.2 g/dl (14.0-18.0); Imm Gran Abs Auto 0.06 X10*3/uL (0.00-0.03); Imm Gran Pct Auto 0.8 % (0.0-0.4); Lymphocytes Absolute Auto 0.6 X10*3/uL (1.2-4.9); Lymphocytes Percent Auto 8.2 % (20-40); MANUAL DIFF FLAG SCAN; Mean Corpuscular HGB Conc 32.5 g/dl (31.0-36.0); Mean Corpuscular Hemoglobin 29.6 pg (27.0-33.0); Mean Platelet Volume 9.7 fL (9.4-12.4); Monocytes Absolute Auto 0.9 X10*3/uL (0.1-1.2); Monocytes Percent Auto 11.3 % (2-11); Neutrophils Percent Auto 79.3 % (45-73); Platelet Count 273 X10*3/uL (160-400); Red Cell Distribution Width 13.2 % (11.0-16.0); SCAN SMEAR FLAG 1; White Blood Count 7.6 X10*3/uL (4.8-10.8)
[2020-07-24 10:14] LABS: Alanine Aminotransferase 14 U/L (0-40); Alkaline Phosphatase 197 U/L (39-117); Anion Gap 16 (12-20); Aspartate Amino Transferase 34 U/L (5-37); Bilirubin Total 0.3 mg/dL (0.0-1.0); Blood Urea Nitrogen 20 mg/dL (9-16); Calcium 9.9 mg/dL (8.4-10.2); Carbon Dioxide 34 mmol/L (22-29); Chloride 96 mmol/L (96-108); Creatinine Clr Calc Pharmacy 84.6; Estimated Glomerular Filt Rate > 60; Glucose Random 92 mg/dL (60-115); Potassium 4.6 mmol/l (3.3-5.1); Sodium 141 mmol/L (135-145); Total Protein 7.3 g/dL (6.5-8.0)
[2020-07-24 10:33] LABS: SLIDE REVIEW VERIFIED; Thyroid Stimulating Hormone 2.37 uIU/mL (0.32-4.0)
[2020-07-24] MEDS: ondansetron HCL/NS 16 MG/50 ML PIGGYBACK 200 MG IV (11:30)
[2020-07-24] MEDS: Acetaminophen 325 MG TABLET 650 MG PO (11:30)
[2020-07-24] MEDS: diphenhydrAMINE HCL 50 MG/ML VIAL 25 MG IVPUSH (11:47)
--- NOTE | 2020-07-24 14:08 | MHC.HEMONC ---
Cycle 1: Nivolumab well tolerated. Patient accompanied by community care provider. No complaints at this time. NO signs of reaction noted.
[2020-08-07 08:45] VITALS: BMI 21.9
[2020-08-07 09:31] VITALS: BP 123/74; PULSE 107; RESP 18; TEMP 36.2; O2SAT 96; BMI 21.3
[2020-08-07 09:40] LABS: Basophils Percent Auto 0.4 % (0-2); Eosinophils Percent Auto 0.2 % (0-4); Hematocrit 43.5 % (42-52); Hemoglobin 14.3 g/dl (14.0-18.0); Imm Gran Abs Auto 0.16 X10*3/uL (0.00-0.03); Imm Gran Pct Auto 1.8 % (0.0-0.4); Lymphocytes Absolute Auto 0.7 X10*3/uL (1.2-4.9); Lymphocytes Percent Auto 7.5 % (20-40); MANUAL DIFF FLAG SCAN; Mean Corpuscular HGB Conc 32.9 g/dl (31.0-36.0); Mean Corpuscular Hemoglobin 29.2 pg (27.0-33.0); Mean Corpuscular Volume 88.8 fL (80-98); Mean Platelet Volume 9.4 fL (9.4-12.4); Monocytes Absolute Auto 0.9 X10*3/uL (0.1-1.2); Monocytes Percent Auto 9.8 % (2-11); Neutrophils Absolute Auto 7.3 X10*3/uL (2.0-8.3); Neutrophils Percent Auto 80.3 % (45-73); Platelet Count 301 X10*3/uL (160-400); SCAN SMEAR FLAG 1; White Blood Count 9.1 X10*3/uL (4.8-10.8)
[2020-08-07 10:05] LABS: Alanine Aminotransferase 13 U/L (0-40); Albumin Level 3.8 g/dL (3.5-5.0); Alkaline Phosphatase 211 U/L (39-117); Anion Gap 16 (12-20); Aspartate Amino Transferase 37 U/L (5-37); Bilirubin Total 0.7 mg/dL (0.0-1.0); Blood Urea Nitrogen 17 mg/dL (9-16); Calcium 9.5 mg/dL (8.4-10.2); Carbon Dioxide 34 mmol/L (22-29); Chloride 94 mmol/L (96-108); Creatinine Clr Calc Pharmacy 85.3; Estimated Glomerular Filt Rate > 60; Glucose Random 86 mg/dL (60-115); Potassium 4.2 mmol/l (3.3-5.1); Sodium 140 mmol/L (135-145); Total Protein 6.8 g/dL (6.5-8.0)
[2020-08-07 10:19] LABS: SLIDE REVIEW VERIFIED
[2020-08-07] MEDS: ondansetron HCL/NS 16 MG/50 ML PIGGYBACK 200 MG IV (11:20)
[2020-08-07] MEDS: diphenhydrAMINE HCL 50 MG/ML VIAL 25 MG IVPUSH (11:38)
[2020-08-07] MEDS: Albuterol/Iprat 2.5/0.5MG 3 ML AMPUL.NEB INHALE (13:11)
[2020-08-07 13:16] VITALS: PULSE 109; O2SAT 93
--- NOTE | 2020-08-07 14:23 | MHC.HEMONC ---
Pt here for his chemo treatment. Labs drawn and reviewed. IV started. Approximately 30 minutes into treatment, pt became very wheezy and appeared SOB. He states he is fine, and denies sob. Chemo infusion stopped. BP 92/60, HR 103 O2 on 2L, O2 SAT 97%. Dr Abad in room. Pt continues to state he feels fine. Repeat BP 118/70, O2 SAT 97%. Updraft treatment ordered, resp therapist in room, but pt refused treatment. He took few breaths of updraft, then refused the rest. Chemo infusion resumed and finished without further difficulty. Update given to worker from longterm, and she states pt has asthma, uses inhaler and nebulizer. Pt scheduled for next treatment in 2 weeks.
--- NOTE | 2020-08-08 09:52 | MHC.HEMONCSW ---
PATIENT ATTEDED FOR CHEMOTHERAPY WHICH WAS TEMPORARILY INTERRUPTED DUE TO ASTHMA ATTACK. MY INTERACTION WITH HIM IS LIMITED DUE TO HIS MENTAL ILLNESS. POR EYE CONTACT, ONLY ANSWERS ONE WORD QUESTIONS. HIS [facility] WORKER IS ALWAYS PRESENT AND STATES THIS IS PATIENTS BASELINE. EDUCATION AND SUPPORT PROVIDED.
--- NOTE | 2020-08-15 15:10 | MHC.HEMONC ---
Nurse Judson called regarding patient's weight loss. Patient lost approximately 10lbs in 3 weeks and has decrease PO intake. Dr. Abad updated. Prescription for Megace to be started. Faxed to pharmacy. Judson will be updated. Patient to return to office next week for treatment- ensure will be provided.
[2020-08-21 09:44] VITALS: BP 110/62; PULSE 119; RESP 18; TEMP 36.4; O2SAT 97; BMI 19.8
[2020-08-21 10:42] LABS: Basophils Percent Auto 0.2 % (0-2); Eosinophils Percent Auto 0.2 % (0-4); Hematocrit 41.8 % (42-52); Hemoglobin 13.4 g/dl (14.0-18.0); Imm Gran Abs Auto 0.15 X10*3/uL (0.00-0.03); Imm Gran Pct Auto 1.2 % (0.0-0.4); Lymphocytes Absolute Auto 0.6 X10*3/uL (1.2-4.9); MANUAL DIFF FLAG SCAN; Mean Corpuscular HGB Conc 32.1 g/dl (31.0-36.0); Mean Corpuscular Hemoglobin 28.3 pg (27.0-33.0); Mean Corpuscular Volume 88.2 fL (80-98); Mean Platelet Volume 10.3 fL (9.4-12.4); Monocytes Percent Auto 8.3 % (2-11); Neutrophils Absolute Auto 10.2 X10*3/uL (2.0-8.3); Neutrophils Percent Auto 85.1 % (45-73); Platelet Count 322 X10*3/uL (160-400); Red Blood Count 4.74 X10*6/uL (4.60-5.80); Red Cell Distribution Width 13.7 % (11.0-16.0); SCAN SMEAR FLAG 1
[2020-08-21] MEDS: 0.9 % Sodium Chloride 1,000 ML 500 ML IV (10:50)
[2020-08-21 11:46] LABS: Alanine Aminotransferase 16 U/L (0-40); Albumin Level 3.3 g/dL (3.5-5.0); Alkaline Phosphatase 196 U/L (39-117); Anion Gap 14 (12-20); Aspartate Amino Transferase 46 U/L (5-37); Bilirubin Total 0.7 mg/dL (0.0-1.0); Blood Urea Nitrogen 22 mg/dL (9-16); Calcium 9.4 mg/dL (8.4-10.2); Carbon Dioxide 35 mmol/L (22-29); Chloride 96 mmol/L (96-108); Creatinine Clr Calc Pharmacy 75.4; Estimated Glomerular Filt Rate > 60; Glucose Random 113 mg/dL (60-115); Potassium 3.9 mmol/L (3.3-5.1); Sodium 141 mmol/L (135-145)
[2020-08-21 11:52] LABS: SLIDE REVIEW VERIFIED
--- NOTE | 2020-08-21 12:39 | MHC.HEMONC ---
Patient is refusing treatment today (Nivolumab) [facility] care worker at bedside. Patient has been refusing to eat for several days as well as refusing medications per [facility] worker. Weight loss of 16lbs in one month. Dr. Abad notified. Patient agrees to hydration today but no treatment. Labs obtained. Spoke to nurse Roper over phone ([phone]) with update[address] Dr. Abad will speak to him regarding plan of care. Barrium swallow ordered and given to Meme Vera to place in order sole rounder. Patient scheduled for 2 weeks for possible Nivolumab if decided if patient agrees.
--- NOTE | 2020-08-21 12:56 | MHC.HEMONCSW ---
PATIENT NOT DOING WELL EMOTIONALLY. BEHAVIOR IS QUIET, FOLLOWS COMMANDS. ADAMANTLY REFUSING TO EAT AND REFUSES CHEMOTHERAPY. DR. MAJOR TO SPEAK WITH [facility] RN ABOUT PLAN OF CARE. BARIUM SWALLOW ORDERED. PATIENT IS HOWEVER ALLOWING IV HYDRATION.
--- NOTE | 2020-08-21 14:47 | MHC.HEMONCMA ---
Order for barium swallow placed in order envelope patternmaker.
--- NOTE | 2020-08-21 15:29 | P.PNHO_ITS ---
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 CURRENT THERAPY: Status post-VATS excision on January 27, 2018 The pathology revealed: A. LEFT POSTERIOR CHEST WALL MARGIN: FRAGMENTS OF UNREMARKABLE FIBROADIPOSE TISSUE. THERE IS NO EVIDENCE OF METASTATIC CARCINOMA SEEN. B. LYMPH NODE, LEVEL 9 #1, BIOPSY: BENIGN LYMPH NODE WITH NO EVIDENCE OF METASTATIC CARCINOMA (0/1). C. LYMPH NODE, LEVEL 9 #2, BIOPSY: BENIGN LYMPH NODE WITH NO EVIDENCE OF METASTATIC CARCINOMA (0/1). D. LYMPH NODE, LEVEL 10 #1, BIOPSY: BENIGN LYMPH NODE WITH NO EVIDENCE OF METASTATIC CARCINOMA (0/1). E. LYMPH NODE, LEVEL 10 #2, BIOPSY: BENIGN LYMPH NODE WITH NO EVIDENCE OF METASTATIC CARCINOMA (O/1). F. LYMPH NODE, LEVEL 11, BIOPSY: BENIGN LYMPH NODE WITH NO EVIDENCE OF METASTATIC CARCINOMA (O/1). G. LYMPH NODE, LEVEL 5, BIOPSY: BENIGN LYMPH NODE WITH NO EVIDENCE OF METASTATIC CARCINOMA (0/1). H. LEFT LOWER LOBE, LOBECTOMY: INVASIVE POORLY DIFFERENTIATED SQUAMOUS CELL CARCINOMA. TUMOR SIZE: 2.6 X 2.5 CM. TUMOR FOCALITY: SINGLE FOCUS. HISTOLOGIC TYPE: SQUAMOUS CELL CARCINOMA. HISTOLOGIC GRADE: 3. VISCERAL PLEURA INVASION: PRESENT ON ELASTIN STAIN (PL2). LYMPHOVASCULAR INVASION: NOT IDENTIFIED. DIRECT INVASION OF ADJACENT STRUCTURES: NOT IDENTIFIED. CURRENT THERAPY: Status post first cycle of Carbo/Gemzar April 12, 2018. Cycle 2 April. Cycle 4. June 14, 2018. Now with disease recurrence. Interval History Interval history: 64-year-old gentleman here for a follow-up visit. He has been doing too well, lately. He has not been eating. The staff [facility] the [facility] tell me that over the past couple of weeks he has just been refusing to eat food. He has been given choices including ice cream and Ensure but he has declined. He has not even been taking his psychotropic medications. It seems that he is in a downward spiral. He came in today and refused to have labs drawn or get chemotherapy. He finally agreed to have some hydration. His labs were checked as well. It is not clear if he has difficulty swallowing. Or just no appetite. He has steadily been losing weight. He has had occasional cough with difficulty bringing up phlegm. However he denies chest pain or trouble breathing. No fever nor chills. He denies easy fatigability. No abdominal pain nausea vomiting heartburn indigestion. His bowels are working regular now, without any gross blood in it. He had constipation, the Colace is helping that. He has had a very poor appetite. He has lost weight. He is not in a good mood today. Rest of the review of systems is unremarkable. Previous history: CT scan of the chest from 03/30 revealed: An ill-defined left central left hilar mass occludes the left upper lobe bronchi proximally (status post left lower lobectomy) with extensive left lung consolidation, consistent with postobstructive pneumonia. There is mediastinal, retrocrural, and upper retroperitoneal lymphadenopathy consistent with metastatic disease. There are ill-defined liver lesions consistent with liver metastases. No pulmonary embolus seen. Lung, left upper lobe, endobronchial biopsy: Predominantly necrotic tumor present, consistent with patient's known history of poorly differentiated squamous cell carcinoma of lung primary. Sections show the tumor cells to be predominantly crushed and necrotic in volving the bronchial mucosa. Immunostains show the tumor cells to be positive for p63, cytokeratins, and CK5/6 while negative for p40, synaptophysin, chromogranin, CD45, CD20 and CD3. Immunostain for CD56 shows non-specific staining. Note is made of patient's history of squamous cell carcinoma resection ([id number]) that is reviewed at this time. The morphologic features and immunohistochemical stain profile support a recurrent poorly differentiated squamous cell carcinoma of the lung. See also corresponding cytoloy bronchial washing. He was referred for radiation further bronchial obstruction. He has completed that. Review of Systems - Constitutional Reports system reviewed and no additional complaints, except as documented, Rep orts lack of energy, Reports malaise, Reports poor appetite, Reports weight loss - Eyes Reports system reviewed and no additional complaints, except as documented - ENT Reports system reviewed and no additional complaints, except as documented - Cardiovascular Reports system reviewed and no additional complaints, except as documented - Respiratory Reports no additional respiratory complaints - Gastrointestinal Reports system reviewed and no additional complaints, except as documented - Genitourinary Genitourinary: Reports no additional male genitourinary complaints - Musculoskeletal Reports system reviewed and no additional complaints, except as documented - Integumentary/Breasts Skin/Breast: Reports no additional skin complaints - Neurologic Reports system reviewed and no additional complaints, except as documented - Psychiatric Reports system reviewed and no additional complaints, except as documented, Reports depression - Endocrine Reports no additional endocrine complaints - Hematologic/Lymphatic Reports system reviewed and no additional complaints, except as documented - Allergic/Immunologic Reports system reviewed and no additional complaints, except as documented [facility] Medical History: Medical History (Last Updated 07/17/20 @ 07:27 by Meme Forte) Squamous cell carcinoma of lung Functional capacity: uses cane/walker Patient : No Social History: Social History (Last Updated 07/17/20 @ 14:38 by Meme Forte) Living Situation History: Household Members: Other Alcohol History Details: Alcohol intake frequency: does not drink Tobacco History: Smoking Status: Current every day smoker Tobacco Type: Cigarette Substance Use History: Use of substances other than those prescribed or required for medical reasons : No Nutrition Assessment: Patient : No Smoking status: Current every day smoker Home Medications and Allergies Current Medications: Current Medications Generic Name Dose Route Start Last Admin Trade Name Jesusq PRN Reason Stop Dose Admin Ondansetron HCl 16 mg in 50 mls @ 200 mls/hr 08/21/20 08:30 Zofran IV ONCE MICHELLE Home Medications Medication Instructions Recorded Confirmed Type ascorbic acid (vitamin C) 1 tab PO BID 07/17/20 07/17/20 History divalproex 1 tab PO BID 07/17/20 07/17/20 History ferrous sulfate 1 tab PO BID 07/17/20 07/17/20 History folic acid 1 tab PO DAILY 07/17/20 07/17/20 History furosemide 1 tab PO DAILY 07/17/20 07/17/20 History gabapentin 100 mg PO BID 07/17/20 07/24/20 History olanzapine 1 tab PO BEDTIME 07/17/20 07/17/20 History Allergies Allergy/AdvReac Type Severity Reaction Status Date / Time No Known Allergies Allergy Unverified 03/27/20 18:57 [No Known Allergies*] Exam Vital signs: Vital Signs Temp 97.5 F 08/21/20 09:44 Pulse 119 H 08/21/20 09:44 Resp 18 08/21/20 09:44 BP 110/62 08/21/20 09:44 Pulse Ox 97 08/21/20 09:44 Intake & Output 08/20/20 08/21/20 08/21/20 18:59 06:59 18:59 Intake Total 1000 / 1000 Balance 1000 / 1000 Intake: Intake, IV Amount 1000 / 1000 0.9 % Sodium Chloride 1,000 ml 1000 / 1000 @ 500 mls/hr IV [facility] Rx#: [id number] Other: Weight 55.7 kg Weight in Grams 66095 Weight 55.7 kg Body Mass Index 19.8 - Constitutional Present: no acute distress - Routine HEENT Exam Head: Present: normal inspection Eye: Present: normal appearance ENT: Present: mucous membranes moist - Routine Neck Exam Present: full ROM - Routine Respiratory Exam Present: CTAB - Routine Cardiovascular Exam Cardiovascular: Present: RRR, S1, S2 - Routine Abdominal Exam Present: soft, nontender - Routine Extremities Exam Present: nontender - Routine Back/Spine/Pelvis Exam Back/Spine: Present: full ROM - Routine Skin Exam Present: intact - Routine Neurological Exam Present: alert, oriented X3 - Routine Psychiatric Exam Present: normal affect Data - Labs CBC & Chem 7: 08/21/20 10:10 08/21/20 11:00 Labs: 07/22/20 00:00 Acetaminophen [Tylenol] 650 mg PO ONCE diphenhydrAMINE HCL [Benadryl] 25 mg IVPUSH ONCE ondansetron HCL/NS [Zofran] 16 mg in 50 ml IV ONCE 07/24/20 00:00 Acetaminophen [Tylenol] 650 mg PO ONCE diphenhydrAMINE HCL [Benadryl] 25 mg IVPUSH ONCE ondansetron HCL/NS [Zofran] 16 mg in 50 ml IV ONCE 07/24/20 09:30 Complete Blood Count Auto Diff Routine Comprehensive Met. Panel Routine SLIDE REVIEW Routine Thyroid Stimulating Hormone Routine 07/24/20 11:30 Nivolumab [Opdivo] 240 mg 0.9 % Sodium Chloride [Ns] 100 ml IV ONCE 08/07/20 00:00 Acetaminophen [Tylenol] 650 mg PO ONCE ONE Nivolumab [Opdivo] 240 mg 0.9 % Sodium Chloride [Ns] 100 ml IV ONCE diphenhydrAMINE HCL [Benadryl] 25 mg IVPUSH ONCE ONE ondansetron HCL/NS [Zofran] 16 mg in 50 ml IV ONCE 08/07/20 09:30 CMP [Comprehensive Met. Panel] Routine Complete Blood Count Auto Diff Routine SLIDE REVIEW Routine 08/07/20 13:05 Albuterol/Iprat 2.5/0.5MG 3 ML [Duoneb] 3 ml INHALE ONCE ONE 08/21/20 08:27 diphenhydrAMINE HCL [Benadryl] 25 mg IVPUSH ONCE ONE 08/21/20 08:28 Acetaminophen [Tylenol] 650 mg PO ONCE ONE 08/21/20 10:10 Complete Blood Count Auto Diff Routine SLIDE REVIEW Routine 08/21/20 10:45 0.9 % Sodium Chloride [Ns] 1,000 ml IV 500 mls/hr 08/21/20 11:00 CMP [Comprehensive Met. Panel] Routine Laboratory Last Values WBC 12.0 X10*3/uL (4.8-10.8) H 08/21/20 10:10 RBC 4.74 X10*6/uL (4.60-5.80) 08/21/20 10:10 Hgb 13.4 g/dl (14.0-18.0) L 08/21/20 10:10 Hct 41.8 % (42-52) L 08/21/20 10:10 MCV 88.2 fL (80-98) 08/21/20 10:10 MCH 28.3 pg (27.0-33.0) 08/21/20 10:10 MCHC 32.1 g/dl (31.0-36.0) 08/21/20 10:10 RDW 13.7 % (11.0-16.0) 08/21/20 10:10 Plt Count 322 X10*3/uL (160-400) 08/21/20 10:10 MPV 10.3 fL (9.4-12.4) 08/21/20 10:10 Immature Gran % (Auto) 1.2 % (0.0-0.4) H 08/21/20 10:10 Neut % (Auto) 85.1 % (45-73) H 08/21/20 10:10 Lymph % (Auto) 5.0 % (20-40) L 08/21/20 10:10 Finney % (Auto) 8.3 % (2-11) 08/21/20 10:10 Eos % (Auto) 0.2 % (0-4) 08/21/20 10:10 Baso % (Auto) 0.2 % (0-2) 08/21/20 10:10 Lymph # (Auto) 0.6 X10*3/uL (1.2-4.9) L 08/21/20 10:10 Finney # (Auto) 1.0 X10*3/uL (0.1-1.2) 08/21/20 10:10 Eos # (Auto) 0.0 X10*3/uL (0.0-0.4) 08/21/20 10:10 Baso # (Auto) 0.0 X10*3/uL (0.0-0.2) 08/21/20 10:10 Abs Immat Gran (auto) 0.15 X10*3/uL (0.00-0.03) H 08/21/20 10:10 Absolute Neuts (auto) 10.2 X10*3/uL (2.0-8.3) H 08/21/20 10:10 Absolute Nucleated RBC 0.000 X10*3/uL (0.0-0.012) 08/21/20 10:10 Nucleated RBC % (auto) 0.0 /100WBC (0.0-0.2) 08/21/20 10:10 Smear Tech's Comments VERIFIED 08/21/20 10:10 Sodium 141 mmol/L (135-145) 08/21/20 11:00 Potassium 3.9 mmol/L (3.3-5.1) 08/21/20 11:00 Chloride 96 mmol/L (96-108) 08/21/20 11:00 Carbon Dioxide 35 mmol/L (22-29) H 08/21/20 11:00 Anion Gap 14 (12-20) 08/21/20 11:00 BUN 22 mg/dL (9-16) H 08/21/20 11:00 Creatinine 0.80 mg/dL (0.5-1.4) 08/21/20 11:00 Estim Creat Clear Calc 75.4 08/21/20 11:00 Estimated GFR > 60 08/21/20 11:00 Random Glucose 113 mg/dL (60-115) 08/21/20 11:00 Calcium 9.4 mg/dL (8.4-10.2) 08/21/20 11:00 Total Bilirubin 0.7 mg/dL (0.0-1.0) 08/21/20 11:00 AST 46 U/L (5-37) H 08/21/20 11:00 ALT 16 U/L (0-40) 08/21/20 11:00 Alkaline Phosphatase 196 U/L (39-117) H 08/21/20 11:00 Total Protein 6.0 g/dL (6.5-8.0) L 08/21/20 11:00 Albumin 3.3 g/dL (3.5-5.0) L 08/21/20 11:00 TSH 2.37 uIU/mL (0.32-4.0) 07/24/20 09:30 Progress Note: A/P (1) Squamous cell carcinoma of lung Status: Acute Assessment and plan: 63-year-old gentleman, with history of smoking, noted to have a left lower lung mass, on CAT scan. Biopsy from November 21 revealed Poorly Differentiated Squamous Cell Carcinoma. PD L1 positive in 95% of tumor cells. PET scan lighted up in the left lower lobe superior segment nodule as well as adenopathy in the left hilum. It was encouraging that mediastinoscopy and bronchoscopy, are both negative. He underwent a left lower lobectomy, by thoracotomy and mediastinal lymphadenectomy, by Dr.Laki Zamudio, on January 27. Pathology revealed: LEFT LOWER LOBE, LOBECTOMY: INVASIVE POORLY DIFFERENTIATED SQUAMOUS CELL CARCINOMA. TUMOR SITE: LEFT LOWER LOBE. TUMOR SIZE: 2.6 X 2.5 CM. TUMOR FOCALITY: SINGLE FOCUS. HISTOLOGIC TYPE: SQUAMOUS CELL CARCINOMA. REGIONAL LYMPH NODES: PERIBRONCHIAL LYMPH NODE POSITIVE FOR METASTATIC SQUAMOUS CELL CARCINOMA (1/1). BENIGN INTRAPARENCHYMAL LYMPH NODE (0/1). PATHOLOGIC STAGE: pT2 pN1. He was residing at [facility]. He is accompanied by a health information specialist today. [facility] to a [facility]. He is adjusting. He had received adjuvant systemic chemotherapy, with 4 cycles of Carboplatin combination, back in the fall of 2017. He started with his first cycle of Carbo-Gemzar on April 12. He completed 4 cycles in June,. He tolerated it well. He had a repeat CAT scan done March 29, which revealed: Stable postsurgical changes of the left hemithorax. There however has been interval development of a few sub-5 mm pulmonary nodules. These may represent infectious, inflammatory or possibly metastatic disease. Attention on short-term interval follow-up recommended. A CT scan of the chest to follow-up on the pulmonary nodules, from 03/30 reveal ed: An ill-defined left central left hilar mass occludes the left upper lobe bronchi proximally (status post left lower lobectomy) with extensive left lung consolidation, consistent with postobstructive pneumonia. There is mediastinal, retrocrural, and upper retroperitoneal lymphadenopathy consistent with metastatic disease. There are ill-defined liver lesions consistent with liver metastases. No pulmonary embolus seen. Lung, left upper lobe, endobronchial biopsy: Predominantly necrotic tumor present, consistent with patient's known history of poorly differentiated squamous cell carcinoma of lung primary. Sections show the tumor cells to be predominantly crushed and necrotic involving the bronchial mucosa. Immunostains show the tumor cells to be positive for p63, cytokeratins, and CK5/6 while negative for p40, synaptophysin, chromogranin, CD45, CD20 and CD3. Immunostain for CD56 shows non-specific staining. Note is made of patient's history of squamous cell carcinoma resection ([id number]) that is reviewed at this time. The morphologic features and immunohistochemical stain profile support a recurrent poorly differentiated squamous cell carcinoma of the lung. See also corresponding cytoloy bronchial washing. He was referred for radiation for the bronchial obstruction. He has completed that. He has been started on nivolumab as second-line treatment with targeted agent. He was offered the treatment and explained details. Initially he agreed to try it and see how it goes. However now he does not wish to continue. He has not been eating. Megace was prescribed but he refused to take it. He appears more depressed. I talked to Judson his case maker to say that the psychiatrist needs to get involved and make sure he is taking his medications so that he can be back to his baseline. PLAN: Will proceed with a barium swallow to see if there is any mechanical problem or dysphagia, leading to inability to eat. He will return in a couple of weeks, for a followup visit and to see if he is agreeable to continuing on the nivolumab. His sister Flower, cells number is [phone]. She will call for any problems prior to that time. Thank you, CC: Dr. Chantel Zamudio. [facility]. [facility]. [address] [place] [address]. Addendum: I did discuss the case with the psychiatrist at [facility]. He will prescribe medications for him, so he can function. - Time Spent With Patient Total time spent is greater than 50% in coordination of care (as documented) at patient's floor/unit and/or counseling patient: 25 - 35 minutes
--- NOTE | 2020-09-04 09:27 | MHC.HEMONC ---
Ship Runner from [facility] called, reporting that Poncho is refusing to come in for treatment. He states he last ate Tuesday evening, and since has only had ensure and ice coffee. He will speak to the staff and decide what to do next. Chemo appointment cancelled today.
--- NOTE | 2020-09-04 10:19 | MHC.HEMONCSW ---
[facility] WORKER CANCELLED APPOINTMENT PATIENT REFUSES TREATMENT. REMAINS POOR INTAKE. DR. MAJOR SPOKE WITH [facility] PSYCHIATRIST. [facility]/PATIENT ARE AWARE OF MY AVAILABILITY.
--- NOTE | 2020-09-04 12:06 | MHC.HEMONCSW ---
UNABLE TO GIVE BROTHER CHAITANYA ANY INFORMATION WITHOUT SISTER/HEALTH CARE PROXY PERMISSION. HE HAD CALLED REQUESTING I CALL HIM. PER SHARON RN AT [facility], PATIENT DOING POORLY MEDICALLY AND IS BEING SECTIONED 12 TO [facility] FOR ASSESSMENT AND CARE. LEFT MESSAGE FOR SISTER ELISABETH [phone]. MARGARITO # [phone].
--- NOTE | 2020-09-05 10:39 | MHC.HEMONCSW ---
REGAAANOOPING NEED TO ASSESS PATIENTS ABILITY TO MAKE MEDICAL DECISIONS I SPOKE WITH TIFF AT [facility]...ADVISED I'D GET MORE INFO FROM [facility] BUT.... PATIENT HAS ALREADY BEEN SECTION [address] JACKSON RECOMMENDING OBSERVATION STAY FOR PSYCH CONSULT, HYDRATION ETC. I UPDATED DRAGAN HERRERA FROM [facility]...REFER TO ER DOCUMENTATION.
--- NOTE | 2020-09-09 13:49 | MHC.HEMONC ---
Pt RN at [facility], Judson called to ask if we could schedule pt for immunotherapy as he will be d/c soon from ER. I spoke with Dr Abad who is waiting to hear back from his Psychiatrist. [facility] called two more times and Dr Abad agreed to put him on schedule for Nivolumab (this Tuesday). I told him it was important for him to be accompanied by a caregiver and he must be eating and with good performance status.
--- NOTE | 2020-09-12 13:36 | MHC.HEMONC ---
No show for chemotherapy today, spoke with nurse Judson over phone. Patient will be starting Remeron tonight ordered by psychiatrist. Judson will call next week with update to see if patient is willing to have treatment. Dr. Abad updated.
--- NOTE | 2020-09-22 11:04 | HE.ONCSEC ---
UPDATE FROM [facility] VISITING NURSING.... MASTER BLACK BELT, SW SEEING PATIENT.
== END | disposition home or self-care (01) ==
LOC: HO.ONC 07-17 14:21
PROVIDERS: PCP Internal Medicine; Visit Provider Internal Medicine Medical Oncology
DX: Z51.12 Encounter for antineoplastic immunotherapy (principal); C34.12 Malignant neoplasm of upper lobe, left bronchus or lung; Z87.891 Personal history of nicotine dependence; Z92.3 Personal history of irradiation
CPT/HCPCS: 36415; 80053; 84443; 85025; 94640; 96360; 96361; 96375; 96413; 99214; J1200; J2405; J9299